=== PATIENT | male | born 1955 | race Caucasian/White ===

== ENCOUNTER 2017-11-10 19:10 | Emergency (ER) | payer OTHER, SELFPAY ==
[2017-11-10 19:11] VITALS: BP 153/67; PULSE 76; RESP 16; TEMP 36.6; O2SAT 100; BMI 34.5
--- NOTE | 2017-11-10 20:07 | EKG12_ITS ---
Test Reason : SOB Blood Pressure : / mmHG Vent. Rate : 070 BPM Atrial Rate : 070 BPM P-R Int : 240 ms QRS Dur : 110 ms QT Int : 398 ms P-R-T Axes : 042 -38 085 degrees QTc Int : 429 ms Sinus rhythm with 1st degree A-V block Left axis deviation Left ventricular hypertrophy Nonspecific ST and T wave abnormality Abnormal ECG Confirmed by GUILHERME ABERNATHY, MILLIE ([id number]), editor & co founder KIANNA CHRISTIAN ([id number]) on 11/15/2017 2:03:44 PM Referred By: LORI Confirmed By:MILLIE VANEGAS MD
--- NOTE | 2017-11-10 20:20 | RAD_ITS ---
STUDY: X-RAY CHEST REASON FOR EXAM: Male, 62 years old. Short of breath TECHNIQUE: PA and lateral COMPARISON: January 21, 2015 FINDINGS: There is mild bilateral perihilar interstitial thickening. There is no focal infiltrate or gross pulmonary edema.. There is no demonstrated pleural abnormality. Normal size heart. Normal mediastinum and zuleyma. Normal visualized pulmonary arteries. Normal visualized aortic arch and descending thoracic aorta. Postop change status post median sternotomy and CABG Dorsal spine demonstrates moderate spondylosis. Normal visualized ribs, clavicles, and shoulders. There is no demonstrated abnormality of the visualized soft tissue structures of the upper abdomen. RAD/Chest PA and Lateral IMPRESSION: Mild nonspecific bilateral perihilar interstitial thickening.. No focal infiltrate or gross pulmonary edema at this time Electronically Signed: Saeid Morales MD at 21:08 EDT , Service support ,
[2017-11-10 20:29] LABS: Absolute Lymphocyte Count 1.19 X10^3/ul (0.83-4.51); Absolute Neutrophil Count 3.5 X10^3/uL (2.0-7.7); Basophil# 0.02 X10^3/uL; Basophil% 0.4 % (0-1); Eosinophil# 0.15 X10^3/uL; Eosinophils% 2.8 % (0-5); Hematocrit 27.8 % (40-54); Hemoglobin 9.4 g/dl (13.0-16.5); Lymphocyte # 1.19 X10^3/ul (4.0); Mean Corp Hgb Conc 33.8 g/gl (32-36); Mean Corpuscular Hgb 30.6 pg (27.0-32.0); Mean Corpuscular Volume 90.6 fL (80-94); Monocyte# 0.53 X10^3/uL; Monocyte% 9.8 % (0-10); Neutrophil % 64.8 % (47-70); Platelet Count 160 K/mm3 (150-450); RBC Distribution Width CV 11.7 % (11.6-14.6); RBC Distribution Width SD 38.2 fl (35.1-43.9); Red Blood Count 3.07 M/mm3 (4.6-6.2); White Blood Count 5.4 K/mm3 (4.4-11.0)
[2017-11-10 20:32] LABS: POSITIVE COUNT NO; POSITIVE DIFFERENTIAL NO; POSITIVE MORPHOLOGY NO
[2017-11-10 20:37] LABS: Bacteria 0 SEEN /hpf (None Seen); Mucous, Urine 0 SEEN /hpf (<or=2+); Red Blood Cells-Urine 0 SEEN /hpf (0-5); Squamous Epithelial Cells - UA 0 SEEN /hpf (0-5); White Blood Cells 0 SEEN /hpf (0-5)
[2017-11-10 20:42] LABS: Color, Urine Yellow (Yellow); Glucose, Dipstick 100 mg/dl (Normal); Ketone-Dipstick Negative (Negative); Leukocyte Esterase-Dipstick Negative /ul (Negative); Nitrite-Dipstick Negative (Negative); Occult Blood-Urine Negative /ul (Negative); Protein-Dipstick 15 mg/dl (Negative); Specific Gravity, Urine 1.015 (1.002-1.030); Urine Bilirubin Dipstick Negative (Negative); Urine Clarity Clear (Clear); Urine Urobilinogen Normal (Normal)
[2017-11-10 20:43] VITALS: BP 146/57; PULSE 67; RESP 18; O2SAT 100
[2017-11-10] MEDS: 0.9% Normal Saline 1,000 ML 150 ML IV (20:43)
[2017-11-10 20:59] LABS: AST(SGOT) 12 U/L (15-37); Alanine Aminotransfer ALT/SGPT 16 U/L (16-61); Albumin, Serum 3.8 g/dL (3.2-5.0); Alkaline Phosphatase 142 U/L (45-117); Anion Gap 7 (5-15); BUN 47 mg/dL (7-18); BUN/Creat Ratio 21.9 RATIO (10-20); Bilirubin, Direct 0.07 mg/dL (0.00-0.30); Calcium,Total 8.5 mg/dL (8.5-10.1); Chloride 106 mmol/L (98-107); Creatinine, Serum 2.15 mg/dL (0.70-1.30); EST Glomerular Filtration Rate 33 mL/min (>60); Est Glom Filt Rate - Afr Amer 41 mL/min (>60); Estimated Creatinine Clearance 37.73 ml/min; Globulin 3.4 g/dL (2.2-4.2); Glucose 146 mg/dL (74-106); Potassium 5.3 mmol/L (3.5-5.1); Protein, Total 7.2 g/dL (6.4-8.2); Sodium Level 137 mmol/L (136-145)
[2017-11-10 21:09] LABS: Hyaline Cast 0-5 SEEN /lpf (0-5)
[2017-11-10 23:09] VITALS: BP 148/66; BP 157/63; BP 161/73; PULSE 71; PULSE 72; PULSE 74
[2017-11-10 23:13] VITALS: BP 148/66; PULSE 73; RESP 16; O2SAT 100
--- NOTE | 2017-11-10 23:19 | ED.VISSUMM ---
- ER Visit Summary Date of Service: 11/10/17 Chief Complaint: Weakness History of Present Illness: The patient is a 62 M reports generalized fatigue and lack of energy over the past 2 weeks. He does report having a diarrheal illness earlier this week. He states he was short of breath with exertion at work earlier. He has been having some pain to the right shoulder blade area for the past several weeks but does seem to be better today after some manipulation. Patient was seen by PCP in the office today and reportedly had orthostatic hypotension in the office. Patient was sent to the ER for further treatment. Physical Examination: Blood pressure is 153/67, temperature 97.9, heart rate 76, respiratory rate 16, pulse ox 100% on room air. Patient sitting upright in bed in no acute distress. He is nontoxic appearing. Head neck examination is unremarkable. Heart is regular rate and rhythm. Lung sounds are clear. Abdomen is soft nontender. Back examination is nontender. No rash or lesions are noted. Neuro exam reveals no focal deficits with normal strength and sensation. Test Results: EKG is sinus at 70 with a first-degree AV block. No acute ST changes noted. CBC reveals a hemoglobin of 9.4 and hematocrit 27.8. The most recent labs I have available to compare to reveal hemoglobin of 9.0 on September [id number]. Chemistry studies reveal potassium of 5.3 with a glucose of 146. His BUN is 47 his creatinine is 2.15. These are compared to prior creatinine values in our system of 1.2, 1.8, 2.3. Patient does not know what his baseline creatinine is. LFTs are normal. Urinalysis is unremarkable. Troponin is negative. Emergency Department Course and Treatment: Patient was given a liter of IV fluids. On repeat evaluation he reports feeling improved. He is able to get up and walk around without the funny feeling in my head. Patient had repeat orthostatic vital signs performed after IV fluids and they are normal at this time. He is encouraged to increase fluids over the weekend and follow with his primary care physician. Treatment Plan: [] Disposition: Discharge Impression: Dehydration This note was generated with [employer] software. It may contain incorrect words, spelling, and punctuation that were not noted in review of the chart prior to signing ED Disposition - Plan for ED Patient: Disposition: Home or Assisted Living Chief Complaint: Shortness of Breath Instructions: ED Dehydration Referrals: John Ramirez MD [Primary Care Provider] - 1 Week
[2017-11-10 23:30] VITALS: BP 143/78; PULSE 67; RESP 15; O2SAT 99
== END 2017-11-10 23:31 | disposition home or self-care (01) ==
PROVIDERS: Emergency Provider Emergency Medicine; Family Provider Family Medicine; PCP Family Medicine
DX: E86.0 Dehydration (principal); I25.10 Atherosclerotic heart disease of native coronary artery without angina pectoris; I25.2 Old myocardial infarction; I10 Essential (primary) hypertension; E78.00 Pure hypercholesterolemia, unspecified; E11.9 Type 2 diabetes mellitus without complications; G40.909 Epilepsy, unspecified, not intractable, without status epilepticus; Z87.891 Personal history of nicotine dependence; Z95.5 Presence of coronary angioplasty implant and graft; Z79.82 Long term (current) use of aspirin; Z79.4 Long term (current) use of insulin; Z79.899 Other long term (current) drug therapy
CPT/HCPCS: 71046; 80048; 80076; 81001; 84484; 85025; 93005; 96360; 96361; 99285; J7030; J7040; A4216

== ENCOUNTER 2019-01-26 01:00 | Emergency (ER) | payer OTHER, SELFPAY ==
[2019-01-26 01:01] VITALS: BP 168/76; PULSE 75; RESP 16; TEMP 36.8; O2SAT 100; BMI 37.0
--- NOTE | 2019-01-26 01:26 | EKG12_ITS ---
Test Reason : CP Blood Pressure : / mmHG Vent. Rate : 075 BPM Atrial Rate : 075 BPM P-R Int : 242 ms QRS Dur : 140 ms QT Int : 420 ms P-R-T Axes : 047 -48 111 degrees QTc Int : 469 ms Sinus rhythm with 1st degree A-V block Left axis deviation Left ventricular hypertrophy with QRS widening and repolarization abnormality Cannot rule out Septal infarct , age undetermined Abnormal ECG Confirmed by GUILHERME ABERNATHY, MILLIE ([id number]), video editor KIANNA CHRISTIAN ([id number]) on 01/28/2019 1:46:18 PM Referred By: SARTHAK Confirmed By:MILLIE VANEGAS MD
--- NOTE | 2019-01-26 01:28 | ED.VIS.CHEST ---
History of Present Illness Chief Complaint: Chest Pain Informant: Patient Onset: Hours - 1.5-2 Activity at onset: Rest Timing: Intermittent, Lasts - 1-1.5 Quality: Aching Location: Substernal - w/ radiation into axillae bilat Current Severity: Gone Maximum Severity: Moderate Worsened By: Nothing. Not Worsened By: Exertion, Movement of Arm, Movement of Torso, Palpation, Breathing, Coughing Relieved By: NTG - x3 Associated Symptoms: Negative for: Nausea, Vomiting, Diaphoresis, Dyspnea, Cough, Fever, Lightheadedness, Palpitations Narrative: Patient has been having this discomfort off and on for the past 2 or 3 weeks. Tonight it was more persistent, and more severe. Only tonight did he try nitroglycerin, it was improving the discomfort but then it would come back. After he took the third 1 just prior to arrival, the discomfort resolved and has not returned. He now does not have any discomfort or pain. He states that he ran out of his aspirin about a month ago and has not gotten any more so he has not been taking any. He is not supposed to be on any other antiplatelet or anticoagulant medications. He had his CABG about 4 or 5 years ago and has not had a stress test since. He was due to see his night assistant this year, however it was Dr. Broussard in the [facility] and he retired prior to the patient's appointment and he has not been reassigned to another night assistant yet, as there are no other [facility] cardiologists locally. Prior Similar Symptoms: No - felt different than when he had CABG - Past Medical History (1) Coronary artery disease Status: Chronic (2) Hypertension Status: Chronic (3) Type 2 diabetes mellitus Status: Chronic (4) Renal insufficiency Status: Chronic Past Medical History - Allergies and Home Meds Allergies/Adverse Reactions: Allergies codeine Allergy (Verified 01/26/19 01:01) Other Primary Care Physician: John Ramirez MD [Primary Care Provider] - Surgical History: coronary bypass surgery - 2014 Smoking Status: Former smoker Drugs: None Review of Systems General: Denies: Chills, Fever, Sweats Eyes: Denies: Visual changes - bilaterally, Diplopia ENT: Denies: Rhinorrhea, Sore throat Cardiovascular: Reports: Chest pain. Denies: Palpitations Respiratory: Denies: Dyspnea, Cough, Dyspnea on exertion Gastrointestinal: Denies: Abdominal pain, Nausea, Vomiting, Diarrhea, Melena, Hematochezia Genitourinary: Denies: Dysuria, Hematuria, Frequency Musculoskeletal: Reports: Swelling - Both legs times several weeks. Denies: Back pain, Extremity Pain Skin: Denies: Rash, Wounds Neurological: Denies: Headache, Weakness, Numbness Physical Exam Vital Signs/Narrative: Vital Signs Temp Pulse Resp BP Pulse Ox 01/26/19 01:01 98.3 F 75 16 168/76 H 100 Inital Vital Signs reviewed: Yes General: Well nourished, Well developed, No Acute Distress Head: Normocephalic, Atraumatic Eyes: Perrl, EOMI ENT: Moist mucous membranes, No rhinorrhea Neck: Supple, Nontender, No JVD Cardiovascular: Regular rate, Regular rhythm, No murmurs, Normal S1, Normal S2 Respiratory: No distress, CTA bilaterally, Chest nontender Abdomen: Soft, Nontender, Nondistended, Normal bowel sounds Back: Nontender, Normal Inspection Extremities: Nontender, Edema - 1+ bilateral lower extremity, symmetric, to mid shins. Negative for: Calf Tenderness Skin: Normal color, No rash, No Trauma Neurological: Alert, Oriented x3, Cranial nerves II-XII grossly intact, Normal Strength, Normal Sensation, Normal Gait Psychological: Normal affect, Normal Mood Diagnostic/Tx/Re-eval Impressions Chest X-Ray 01/26/19 01:45 IMPRESSION: Cardiomegaly, interstitial pulmonary edema, and tiny left pleural effusions suggest CHF.. at 0212 Reported and signed by: Pablito Romo MD Electronically Signed: Pablito Romo MD at 2:11 EDT Tel , Service support , 01/26/19 01:45 Chest 1 View (Portable) [RAD] Stat Laboratory Results 01/26/19 01/26/19 01:05 01:05 WBC 6.1 RBC 3.05 L Hgb 9.6 L Hct 28.7 L MCV 94.1 H MCH 31.5 MCHC 33.4 RDW Std Deviation 38.0 RDW Coeff of Melissa 11.4 L Plt Count 127 L MPV 10.3 Immature Gran % (Auto) 0.200 Neut % (Auto) 70.4 H Lymph % (Auto) 14.4 L [place] % (Auto) 11.3 H Eos % (Auto) 3.4 Baso % (Auto) 0.3 Absolute Neuts (auto) 4.3 Absolute Lymphs (auto) 0.88 Nucleated RBC % 0 Sodium 136 Potassium 4.2 Chloride 105 Carbon Dioxide 27.0 Anion Gap 4 L BUN 27 H Creatinine 1.30 Estim Creat Clear Calc 61.61 Est GFR (MDRD) Af Amer 72 Est GFR (MDRD) Non-Af 60 BUN/Creatinine Ratio 20.8 H Glucose 311 H Calcium 8.4 L Troponin I 0.019 - Rhythm Strip Rhythm Strip: Sinus Rhythm Rate: 75 Ectopy: None - EKG Initial EKG Interpretation: LBBB - suspected, AV Block - 1st deg, Inverted T-Waves - lateral limb leads w/ associated STD 1mm, S-T Elevation - J-pt elevation V1-2 1mm, - - LVH Prior: Changed - ant-sept abn are different compared w/ last EKG 2018 Repeat Eval: Pain Free - without additional treatment JONO Risk: >/= 3RF, H/O CAD Score: 2 - Medical Decision Making HEART score is /1/1/2/0 = 5. Work-up shows negative enzymes unremarkable x-ray, his EKG is different than the one that was performed a year or so ago, however his symptoms were resolved when the EKG was obtained. He prefers to try to go home, I discussed admission but he refuses. He has an appointment with his doctor on Monday. Given this, I would be okay with him going home since he has been pain-free for several hours if a delta troponin with a 3-hour repeat set of enzymes and repeat EKG were negative/unchanged. However, understanding that I am unable to make assumptions on his pain that he had earlier and its etiology, given his EKG changes and risk, he does not want to stay and wishes to leave now. Under the circumstances as I discussed with him, that will need to be AGAINST MEDICAL ADVICE. He understands that and also understands that he needs to take aspirin and is welcome to return if worse or if he changes his mind. ED Disposition - Plan for ED Patient: Disposition: Against Medical Advice Diagnosis: Chest pain, unspecified, Coronary artery disease Instructions: CHEST PAIN, Uncertain Cause Referrals: John Ramirez MD [Primary Care Provider] - Keep Huma appointment (Return to the ER for recurrent symptoms or if you change your mind about further evaluation/admission) Additional Instructions: Make sure you purchase some aspirin and take at least 81 mg once daily.
[2019-01-26 01:45] VITALS: BP 170/68; PULSE 63; RESP 16; O2SAT 100
--- NOTE | 2019-01-26 01:45 | RAD_ITS ---
HISTORY: CHEST PAIN STARTING TONIGHTHX OF TRIPLE BYPASS IN 2014 EXAM: XR Chest 1 View: COMPARISON: November 10, 2018 FINDINGS: # of images incl. paperwork: 1 Sternal wires persists Increased interstitial linear markings suggestive of minimal pulmonary edema is new Heart is borderline enlarged. Bones are normal. Pulmonary vascularity is distinct. Slight blunting to the left costophrenic sulcus could be due to a tiny left pleural effusion. RAD/Chest 1 View (Portable) IMPRESSION: Cardiomegaly, interstitial pulmonary edema, and tiny left pleural effusions suggest CHF.. at 0212 Reported and signed by: Pablito Romo MD Electronically Signed: Pablito Romo MD at 2:11 EDT Tel , Service support ,
[2019-01-26 01:46] LABS: Absolute Lymphocyte Count 0.88 X10^3/uL (0.83-4.51); Absolute Neutrophil Count 4.3 X10^3/uL (2.0-7.7); Basophil# 0.02 X10^3/uL; Basophil% 0.3 % (0-1); Eosinophil# 0.21 X10^3/uL; Eosinophils% 3.4 % (0-5); Hematocrit 28.7 % (40-54); Hemoglobin 9.6 g/dL (13.0-16.5); Lymphocyte # 0.88 X10^3/ul (4.0); Lymphocyte % 14.4 % (19-41); Mean Corp Hgb Conc 33.4 g/dL (32-36); Mean Corpuscular Hgb 31.5 pg (27.0-32.0); Mean Corpuscular Volume 94.1 fL (80-94); Mean Platelet Vol. 10.3 fl (6.2-12.0); Monocyte# 0.69 X10^3/uL; Monocyte% 11.3 % (0-10); NRBC Flagged by Analyzer 0 % (0-5); Neutrophil # 4.29 X10^3/uL (2.7-7.7); Neutrophil % 70.4 % (47-70); Platelet Count 127 K/mm3 (150-450); RBC Distribution Width CV 11.4 % (11.6-14.6); Red Blood Count 3.05 M/mm3 (4.6-6.2); White Blood Count 6.1 K/mm3 (4.4-11.0)
[2019-01-26 01:47] VITALS: BP 170/68; PULSE 63; RESP 17; O2SAT 100
[2019-01-26] MEDS: Aspirin 81 MG TAB.CHEW 324 MG PO (01:47)
[2019-01-26 01:50] LABS: Anion Gap 4 (5-15); BUN 27 mg/dL (7-18); BUN/Creat Ratio 20.8 RATIO (10-20); Calcium,Total 8.4 mg/dL (8.5-10.1); Chloride 105 mmol/L (98-107); EST Glomerular Filtration Rate 60 mL/min (>60); Est Glom Filt Rate - Afr Amer 72 mL/min (>60); Estimated Creatinine Clearance 61.61 ml/min; Glucose 311 mg/dL (74-106); Potassium 4.2 mmol/L (3.5-5.1); Sodium Level 136 mmol/L (136-145)
[2019-01-26 03:00] VITALS: BP 166/70; PULSE 90; RESP 16; O2SAT 100
== END 2019-01-26 03:02 | disposition left against medical advice (07) ==
PROVIDERS: Emergency Provider Emergency Medicine; Family Provider Family Medicine; PCP Family Medicine
DX: R07.9 Chest pain, unspecified (principal); I25.10 Atherosclerotic heart disease of native coronary artery without angina pectoris; Z53.21 Procedure and treatment not carried out due to patient leaving prior to being seen by health care provider; I12.9 Hypertensive chronic kidney disease with stage 1 through stage 4 chronic kidney disease, or unspecified chronic kidney disease; E11.22 Type 2 diabetes mellitus with diabetic chronic kidney disease; N18.9 Chronic kidney disease, unspecified; Z95.1 Presence of aortocoronary bypass graft; Z79.4 Long term (current) use of insulin; Z79.899 Other long term (current) drug therapy; Z87.891 Personal history of nicotine dependence
CPT/HCPCS: 71045; 80048; 84484; 85025; 93005; 99284; A4216

== ENCOUNTER 2019-03-06 09:24 | Inpatient (IN) | payer OTHER, SELFPAY ==
[2019-03-06] VITALS (35 sets, daily range): BP systolic 117–175; BP diastolic 51–79; PULSE 56–152; RESP 12–29; TEMP 35.6–37.4; O2SAT 79–100; BMI 46.5; BMI 36.4; BMI 36.5
--- NOTE | 2019-03-06 09:32 | NURSING ---
STEMI ALERT CALLED [phone]
--- NOTE | 2019-03-06 09:33 | CT_ITS ---
STUDY: CT BRAIN WITHOUT CONTRAST REASON FOR EXAM: Male, 63 years old. An injury due to a fall. RADIATION DOSAGE (If Supplied By Facility): CTDIvol = ( 44.99 ) mGy, DLP = ( 880.47 ) mGycm TECHNIQUE: Transaxial CT imaging of the brain was performed without administration of intravenous contrast material. Individualized dose optimization techniques were used for this CT. COMPARISON: No relevant priors. FINDINGS: Scalp hematoma overlying the posterior aspect of the right parietal occipital bone. Normal calvarium. Normal size ventricles and extra-axial spaces for the patient's age. Normal white matter tracts of the cerebral hemispheres. Normal basal ganglia and thalami. Normal brainstem. Normal cerebellum. There is no intracranial hemorrhage. There are no findings of an acute ischemic infarction. Atherosclerotic calcification of the vertebral arteries and cavernous portions of the internal carotid arteries bilaterally. Minimal nodular mucosal thickening along the lateral wall of the right and left maxillary sinuses. CT/Brain/Head without Contrast IMPRESSION: Scalp hematoma overlying the posterior aspect of the right parietal occipital bone. Electronically Signed: Chris Hare, at 9:51 EDT , Service support ,
--- NOTE | 2019-03-06 09:33 | EKG12_ITS ---
Test Reason : SYNCOPE Blood Pressure : / mmHG Vent. Rate : 152 BPM Atrial Rate : 152 BPM P-R Int : 000 ms QRS Dur : 196 ms QT Int : 348 ms P-R-T Axes : 000 -66 116 degrees QTc Int : 553 ms Appears to be Normal Sinus Rhythm, First Degree AV Block Left axis deviation Left bundle branch block Abnormal ECG Confirmed by BRIANA ABERNATHY, SHAVON ([id number]), order editor RAMYA MONTAGUE ([id number]) on 03/08/2019 1:46:45 PM Referred By: Suleman Gaines Confirmed By:MARIELENA WARREN MD
--- NOTE | 2019-03-06 09:41 | ED.RN ---
PT WITH EMESIS UPON CHECKING IN TO ROOM AND HR 152 ON MONITORY. 2ND LINE STARTED WITH BLOOD SENT. PT TO CT SCAN VIA CART WITH EMANI Cunningham RN. FAMILY IN AND UPDATED.
[2019-03-06 09:43] LABS: Absolute Lymphocyte Count 2.72 X10^3/uL (0.83-4.51); Absolute Neutrophil Count 6.4 X10^3/uL (2.0-7.7); Basophil# 0.03 X10^3/uL; Basophil% 0.3 % (0-1); Eosinophil# 0.21 X10^3/uL; Hematocrit 32.5 % (40-54); Hemoglobin 10.5 g/dL (13.0-16.5); Lymphocyte # 2.72 X10^3/ul (4.0); Lymphocyte % 26.1 % (19-41); Mean Corp Hgb Conc 32.3 g/dL (32-36); Mean Corpuscular Hgb 30.7 pg (27.0-32.0); Monocyte# 0.99 X10^3/uL; Monocyte% 9.5 % (0-10); NRBC Flagged by Analyzer 0 % (0-5); Neutrophil # 6.43 X10^3/uL (2.7-7.7); Neutrophil % 61.6 % (47-70); Platelet Count 185 K/mm3 (150-450); RBC Distribution Width SD 38.5 fl (35.1-43.9); Red Blood Count 3.42 M/mm3 (4.6-6.2); White Blood Count 10.4 K/mm3 (4.4-11.0)
--- NOTE | 2019-03-06 09:48 | NURSING ---
ICU 1 AFTER THROUGH OPERATOR PINTO STEMI
--- NOTE | 2019-03-06 09:51 | ED.RN ---
dr. bearden in to see pt and stemi called. pt alerrt and responsive. skin diaphoretic and pt sallow. c/o cp now though pt had cpr when went down. pt to ct scan
--- NOTE | 2019-03-06 09:53 | ED.DCSUM_ITS ---
- ER Visit Summary Date of Service: 03/06/19 Chief Complaint: [Syncope] History of Present Illness: The patient is a 63 M [presents the emergency department via EMS from work. Patient apparently had a syncopal episode while at work and hit his head on a concrete. There was some question of some seizure activity. Apparently bystanders did CPR for short time. On EMS arrival patient coherent but somewhat confused and disoriented. Patient had vomited. Patient on arrival to ER complains of retrosternal chest pressure and heaviness. Patient does have history of coronary artery disease with three-vessel CABG 4 years ago at [facility]. Patient does have a history of CHF and history of diabetes. Fingerstick blood sugar by EMS was 276. Patient denies any neck pain. Denies any abdominal pain.] Physical Examination: HEENT-PERRLA, EOMI. Cranial nerves II through XII grossly intact. TMs clear. Mucous membranes moist. No adenopathy. Patient has a hematoma to the right parietal scalp. She has no C-spine tenderness on palpation with normal active range of motion is painless. Cardiovascular-regular rate and rhythm without murmur or ectopy Lungs-good aeration bilaterally. Patient has rhonchi throughout. No accessory muscle use or retractions. Abdomen-normoactive bowel sounds, soft, nontender, no rebound or rigidity, no peritoneal signs. Extremities-intact ?4, normal range of motion, normal pulses, atraumatic] Test Results: [EKG obtained on arrival showed a sinus rhythm with a ventricular rate in the 70s with a left bundle branch block morphology which is new compared with prior EKG. Patient had a CBC with differential that showed a white count 10.4, hemoglobin 10.5, hematocrit 32, platelets 25. CT scan of the brain without contrast showed a scalp hematoma otherwise nothing acute.] Emergency Department Course and Treatment: [A STEMI alert was called and case was discussed with Dr. Gaines. No antiplatelet therapy was started in the emergency department due to the head injury and it was unclear at that time if patient had sustained an intracranial hemorrhage. Patient initially went to CT scan and then straight to the Printing Equipment Mechanic Apprentice from the CT scanner.] Treatment Plan: [Admit] Disposition: [Admit] Impression: [Syncope Acute ST elevation IA Closed head injury] This note was generated with [employer] software. It may contain incorrect words, spelling, and punctuation that were not noted in review of the chart prior to signing
--- NOTE | 2019-03-06 09:53 | ED.RN ---
0940-metallurgical lab technician ready and pt to metallurgical lab technician via cart straight from ct. updated family on condition adn sent to waiting room.
[2019-03-06 10:00] LABS: Anion Gap 7 (5-15); BUN 45 mg/dL (7-18); BUN/Creat Ratio 21.1 RATIO (10-20); Calcium,Total 8.6 mg/dL (8.5-10.1); Chloride 103 mmol/L (98-107); Creatinine, Serum 2.13 mg/dL (0.70-1.30); EST Glomerular Filtration Rate 34 mL/min (>60); Est Glom Filt Rate - Afr Amer 41 mL/min (>60); Estimated Creatinine Clearance 28.13 ml/min; Glucose 342 mg/dL (74-106); Sodium Level 134 mmol/L (136-145)
--- NOTE | 2019-03-06 10:28 | EKG12_ITS ---
Test Reason : POST CATH Blood Pressure : / mmHG Vent. Rate : 076 BPM Atrial Rate : 076 BPM P-R Int : 300 ms QRS Dur : 196 ms QT Int : 446 ms P-R-T Axes : 082 -59 106 degrees QTc Int : 501 ms Sinus rhythm with 1st degree A-V block Left axis deviation Left bundle branch block Abnormal ECG Confirmed by GUILHERME ABERNATHY, MILLIE ([id number]), content editor KIANNA CHRISTIAN ([id number]) on 03/13/2019 3:12:39 PM Referred By: Suleman Gaines Confirmed By:MILLIE VANEGAS MD
--- NOTE | 2019-03-06 10:29 | EKG12_ITS ---
Test Reason : POST CATH Blood Pressure : / mmHG Vent. Rate : 089 BPM Atrial Rate : 074 BPM P-R Int : 000 ms QRS Dur : 198 ms QT Int : 446 ms P-R-T Axes : 000 -59 105 degrees QTc Int : 542 ms Sinus Rhythm with Prolonged VT Interval Left axis deviation Left bundle branch block Abnormal ECG Confirmed by GUILHERME ABERNATHY, MILLIE ([id number]), development editor KIANNA CHRISTIAN ([id number]) on 03/13/2019 3:12:31 PM Referred By: Suleman Gaines Confirmed By:MILLIE VANEGAS MD
[2019-03-06] MEDS: Furosemide 100 MG/10 ML Vial 80 MG IV (10:50)
[2019-03-06 10:56] LABS: Bedside Glucose 403 mg/dL (70-110)
[2019-03-06 10:56] LABS: Base Excess -9 mmol/L (-2 to +2); Bicarbonate 17.4 mmol/L (22-26); Blood Gas Specimen Type ALINE; PO2 48 mmHG (75-100); SO2 81 % (95-99); Total Carbon Dioxide 18 mmol/L; pCO2 33.6 mmHg (35-45); pH 7.32 (7.35-7.45)
--- NOTE | 2019-03-06 11:00 | RAD_ITS ---
STUDY: X-RAY CHEST REASON FOR EXAM: Male, 63 years old. Chest pain. TECHNIQUE: Single AP portable view of the chest. COMPARISON: Comparison is made with prior study dated January 26, 2019. FINDINGS: EKG electrodes are seen. A defibrillator pad is seen overlying the right hemithorax. There is evidence of CHF with opacification of the right hemithorax. There is no demonstrated pleural abnormality. Sternal cerclage wires and vascular clips are present from a prior sternotomy and coronary artery bypass graft procedure (CABG). Moderate cardiomegaly. Normal mediastinum and zuleyma. Normal visualized pulmonary arteries. There is atherosclerotic calcification of the aortic arch with tortuosity. There are diffuse degenerative changes of the visualized thoracic spine. Normal visualized ribs, clavicles, and shoulders. There is no demonstrated abnormality of the visualized soft tissue structures of the upper abdomen. RAD/Chest 1 View (Portable) IMPRESSION: Atypical CHF more prominent in the right lung most likely positional in nature. Electronically Signed: Chris Hare, at 12:30 EDT , Service support ,
--- NOTE | 2019-03-06 11:02 | ECHOCS_ITS ---
Reason For Study: CAD, STEMI Procedure This was a 2D Doppler, Color Flow transthoracic echocardiogram. The study was technically difficult. Patient scanned supine due to recent sheath removal and post CPR. Exam performed portable in ICU/CCU. Left Ventricle Normal size and thickness. The estimated ejection fraction is 50-55 %. Stage 1 diastolic dysfunction. Septal motion consistent with IVCD. Posterior-Basal: Mildly hypokinetic. Right Ventricle Normal size and thickness. Normal systolic function. Atria Normal left atrium. Normal right atrium. Normal atrial septum. Mitral Valve The mitral valve is structurally normal. No prolapse or stenosis seen. Tricuspid Valve Normal tricuspid valve. Unable to estimate RV systolic pressure due to inadequate jet, pulmonary artery pressure probably normal. Aortic Valve Trisinus/trileaflet aortic valve. Normal aortic valve. Pulmonic Valve Normal pulmonic valve. Great Vessels Normal aortic root. Normal arch. Normal inferior vena cava. Inferior vena cava collapse with sniff. Pericardium/Pleural No pericardial effusion. Medication Diluted definity 2ml given slow IV push to enhance endocardial definition. MMode/2D Measurements & Calculations LVIDd: 5.4 cm IVSd: 0.92 cm Ao root diam: 3.2 cm LVIDs: 3.4 cm LVPWd: 1.1 cm FS: 37.8 % LAV(MOD-bp): 43.8 ml LA A4 area: 18.2 cm2 LA dimension(2D): 4.4 cm LAV(MOD-bp) Indexed: 20.7 ml/m2 LAV(MOD-sp2): 32.6 ml LAV(MOD-sp4): 46.9 ml RA A4 area: 14.1 cm2 Doppler Measurements & Calculations MV E max jose: 84.4 cm/sec Lat Peak E' Jose: 6.1 cm/sec Med Peak E' Jose: 3.2 cm/sec MV A max jose: 87.3 cm/sec E/E' lat: 13.7 E/E' med: 26.1 MV E/A: 0.97 Ao V2 max: 128.0 cm/sec LV V1 max: 110.5 cm/sec PA V2 max: 98.8 cm/sec Ao max P.6 mmHg LV V1 max P.9 mmHg Interpretation Summary The estimated ejection fraction is 50-55 %. Stage 1 diastolic dysfunction. Posterior-Basal: Mildly hypokinetic Unable to estimate RV systolic pressure due to inadequate jet, pulmonary artery pressure probably normal. There is no comparison study available. The study was technically difficult. Contrast injection was performed. Ordering Physician: Suleman Gaines Referring Physician: John Ramirez Performed By: Micaela Boyer RDCS
[2019-03-06] MEDS: Ipratropium/Albuterol Sulfate 3 ML AMPUL.NEB INHALATION ×3 (11:09→18:51)
--- NOTE | 2019-03-06 11:11 | CPS ---
Patient on 15L HFNC
--- NOTE | 2019-03-06 11:17 | CPS ---
STAT aerosol given.
[2019-03-06] MEDS: Insulin Lispro 100 UNIT/ML INSULN.PEN 10 UNIT SC (11:37)
[2019-03-06 12:18] LABS: Anion Gap 7 (5-15); BUN 47 mg/dL (7-18); BUN/Creat Ratio 23.5 RATIO (10-20); Calcium,Total 9.1 mg/dL (8.5-10.1); Chloride 103 mmol/L (98-107); EST Glomerular Filtration Rate 36 mL/min (>60); Est Glom Filt Rate - Afr Amer 44 mL/min (>60); Estimated Creatinine Clearance 40.05 ml/min; Glucose 368 mg/dL (74-106); Potassium 6.4 mmol/L (3.5-5.1); Sodium Level 135 mmol/L (136-145)
--- NOTE | 2019-03-06 12:27 | PCM.HP.STD ---
Problem List (1) Hyperkalemia Status: Acute (2) Acute kidney injury superimposed on chronic kidney disease Status: Acute (3) Coronary artery disease Status: Chronic Qualifiers: Coronary Disease-Associated Artery/Lesion type: [place] artery [place] vs. transplanted heart: [place] heart Associated angina: without angina Qualified Code(s): I25.10 - Atherosclerotic heart disease of [place] coronary artery without angina pectoris (4) Hypertension Status: Chronic (5) Type 2 diabetes mellitus Status: Chronic History of Present Illness Date of Admission: 03/06/19 Chief Complaint: Syncope, chest pain, left shoulder pain - 1 day The patient is a 63-year-old with past medical history of type II DM, insulin-dependent, CKD stage III, seizure disorder, on Tegretol, hypertension hyperlipidemia, CAD status post CABG who comes in with a syncopal episode. Patient has been complaining of left shoulder pain ongoing for 4 days. He went to work early this morning. He felt dizzy and there was a last thing he remembered. He was reportedly said to have had a syncopal episode without any observed seizure-like activity. He was said to be without a pulse and received CPR with chest compressions. Patient, on arrival by EMS, had a pulse and was alert and oriented x2. His vitals showed 90 temperature 96.1 F, heart rate 152, blood pressure 139/70, respiratory rate 18, SPO2 was 82% on room air and this improved to 90% on nonrebreather mask. He was observed to have begun to vomit. He had several episodes of vomiting in the emergency department. An EKG done showed wide-complex tachycardia. This was overhead paged as a STEMI alert. Patient was also noted to be hyperkalemic with potassium of 6.0. Sodium was 143, chloride 103, bicarbonate 25, anion gap of 7, BUN was 45, was 2.13; Creatinine is 1.30. WBC count was 10.4, hemoglobin 10.5, platelet count 185. He received calcium gluconate, IV insulin with dextrose. Patient underwent emergent cardiac catheterization which showed triple-vessel CAD of the LAD, left circumflex and RCA. Occluded saphenous graft to RCA. There was wide patency of the ORTIZ to LAD as well as SVG to OM. No interventions were performed. Chest X-ray done later in ICU was suggestive of acute CHF. Past Medical History Past Medical History (Chronic Problems): Chronic Problems Coronary artery disease (Chronic) Hypertension (Chronic) Type 2 diabetes mellitus (Chronic) Renal insufficiency (Chronic) Allergies codeine Allergy (Verified 01/26/19 01:01) Other lisinopril Allergy (Verified 03/06/19 12:24) Other Home Medications: Ambulatory Orders Medication Instructions Recorded Aspirin [Aspirin, Baby] 81 mg PO DAILY@0800 04/11/13 Carbamazepine [Tegretol] 200 mg PO TIDCM 04/11/13 Insulin Glargine [Lantus SoloStar 57 units SC QHS 04/11/13 Pen] Insulin Lispro [Humalog] 25 unit SQ TID 04/11/13 Atenolol [Tenormin (beta kelly)] 50 mg PO QHS 11/10/17 Furosemide [Lasix] 20 mg PO DAILY 03/06/19 Rosuvastatin Calcium [Crestor] 20 mg PO QHS 03/06/19 Surgical History: coronary bypass surgery - 2014 Psychiatric History: No pertinent psych hx Lives: With Family Smoking Status: Former smoker Tobacco Use: Non-smoker Alcohol: None Drugs: None - *Family History Maternal History Items: Heart Disease Paternal History Items: Hypertension - hx of quadruple bypass Review of Systems Constitutional: Denies: Anorexia, Chills, Fever, Malaise, Weakness, Weight Change, Fatigue Eyes: Denies: Blurred vision, Cataracts, Conjunctivae Inflammation, Pain, Redness, Vision Change HEENT: Denies: Difficulty Hearing, Difficulty Swallowing, Dysphasia, Head Aches, Hearing Changes, Nasal bleeding, Nasal Congestion, Post Nasal Drip, Sinus Congestion, Sinus Drainage Cardiovascular: Reports: Chest Tightness, Edema, Light Headedness, Orthopnea, Paroxysmal Noc. Dyspnea, Syncope. Denies: Chest Pain, Claudication, Chest Pressure, Heaviness, Palpitations Respiratory: Reports: Shortness of breath at rest, Shortness of breath upon exertion. Denies: Cough, Sputum production Gastrointestinal: Denies: Abdominal Pain, Constipation, Hematemesis, Hematochezia, Nausea, Vomiting Genitourinary: Denies: Dysuria, Incontinence, Nocturia Musculoskeletal: Denies: Joint Pain, Joint stiffness, Joint swelling, Joint Tenderness Skin: Denies: Rash, Wounds Neurological: Denies: Numbness, Tingling, Focal weakness Psychiatric: Denies: Anxiety, Depression, Homicidal Ideations, Suicidal Ideations Hematologic/ Lymphatic: Denies: Easy Bruising, Easy Bleeding VTE Information - Inpt Only VTE Present on Admission: No VTE Pharm Prophylaxis ordered?: Yes Patient Problems: Active and Suspected Problems Hyperkalemia (Acute) Acute kidney injury superimposed on chronic kidney disease (Acute) - Physical Exam General: Alert, Oriented x3, Cooperative, - - dyspneix on arrival to ICU HEENT: Atraumatic, PERRLA, EOMI, Normocephalic Oral: Moist Mucosa Neck: Supple Lungs: Clear to auscultation, Normal air movement Cardiovascular: Regular rate, Regular Rhythm, Normal S1, Normal S2, No murmurs Abdomen: Bowel Sounds Present, Soft, Non Tender, Passing Flatus, Hypoactive Bowel Sounds Extremities: No edema Skin: No rashes, No breakdown Musculoskeletal: No Tenderness to Palpation of Joints or Extremities Neurological: Cranial nerves II-XII grossly intact, Neuro grossly intact Psych/Mental Status: Normal Affect, Appropriate Vital Signs Temp Pulse Resp BP Pulse Ox 97.4 F L 70 20 H 166/77 H 90 03/06/19 10:30 03/06/19 11:09 03/06/19 11:09 03/06/19 10:30 03/06/19 11:09 Oxygen Flow Rate (L/min) 15 Oxygen Delivery Method Nasal Cannula Weight: 115.3 kg Body Mass Index (BMI) 36.4 Finger Stick Blood Glucose 476 Laboratory Tests Past 24 Hrs 03/06/19 03/06/19 03/06/19 09:30 09:30 09:54 WBC 10.4 RBC 3.42 L Hgb 10.5 L Hct 32.5 L MCV 95.0 H MCH 30.7 MCHC 32.3 RDW Std Deviation 38.5 RDW Coeff of Melissa 11.0 L Plt Count 185 MPV 10.0 Immature Gran % (Auto) 0.500 Neut % (Auto) 61.6 Lymph % (Auto) 26.1 [place] % (Auto) 9.5 Eos % (Auto) 2.0 Baso % (Auto) 0.3 Absolute Neuts (auto) 6.4 Absolute Lymphs (auto) 2.72 Nucleated RBC % 0 Specimen Type CHIVO pH 7.32 L Bicarbonate Actual 17.4 L POC Total CO2 18 Base Excess -9 L O2 Saturation 81 L ABG pCO2 33.6 L ABG pO2 48 L Sodium 134 L Potassium 6.0 H* Chloride 103 Carbon Dioxide 24.0 Anion Gap 7 BUN 45 H Creatinine 2.13 H Estim Creat Clear Calc 28.13 Est GFR (MDRD) Af Amer 41 L Est GFR (MDRD) Non-Af 34 L BUN/Creatinine Ratio 21.1 H Glucose 342 H Calcium 8.6 Troponin I < 0.015 03/06/19 11:30 WBC RBC Hgb Hct MCV MCH MCHC RDW Std Deviation RDW Coeff of Melissa Plt Count MPV Immature Gran % (Auto) Neut % (Auto) Lymph % (Auto) [place] % (Auto) Eos % (Auto) Baso % (Auto) Absolute Neuts (auto) Absolute Lymphs (auto) Nucleated RBC % Specimen Type pH Bicarbonate Actual POC Total CO2 Base Excess O2 Saturation ABG pCO2 ABG pO2 Sodium 135 L Potassium 6.4 H* Chloride 103 Carbon Dioxide 25.0 Anion Gap 7 BUN 47 H Creatinine 2.00 H Estim Creat Clear Calc 40.05 Est GFR (MDRD) Af Amer 44 L Est GFR (MDRD) Non-Af 36 L BUN/Creatinine Ratio 23.5 H Glucose 368 H Calcium 9.1 Troponin I POC Glucose 03/06/19 10:51 POC Glucose 403 H Assessment/Plan All Active Problems Hyperkalemia (Acute) Acute kidney injury superimposed on chronic kidney disease (Acute) Hyperglycemia (Acute) 63-year-old with past medical history of type II DM, insulin-dependent, CKD stage III, seizure disorder, on Tegretol, hypertension hyperlipidemia, CAD status post CABG who comes in with a syncopal episode and found to be hyperkalemic. 1. Syncope, likely secondary to hyperkalemia with EKG changes. Differentials include possible seizure as patient has history of seizure disorder Initially called out as acute STEMI, cardiac cath was unremarkable. Hyperkalemia management is ongoing Plan: Admit to ICU post cardiac cath, IV lispro 10 units x 1 with dextrose, albuterol breathing treatment, Kayexalate, repeat BMP in a couple of hours as well as in a.m. 2. Hyperkalemia likely secondary to TIFFANIE on CKD stage 3, repeat potassium is 6.4, patient had received insulin, breathing treatment, calcium gluconate in the cardiac cath Will continue with Kayexalate and repeat the above except for calcium gluconate plus Lasix 20mg IV x 1. 3. TIFFANIE on CKD stage III, likely multifactorial, in a known diabetic, with history of probable systolic CHF Most likely cardiorenal related, continue on Lasix, repeat BMP in a couple of hours as well as in a.m. Nephrology consulted 4. Acute on chronic systolic CHF, patient was given Lasix 80 mg IV x1 on arrival to the ICU Continue with Lasix 40 mg IV twice daily 5. Type II DM, blood sugars are uncontrolled, will continue on home insulin, blood glucose checks every 6h whilst kept n.p.o. Also insulin sliding scale, check HbA1c 6. Hypertension, uncontrolled, will continue on home atenolol as well as PRN Hydralazine 7. Anterior chest wall/right lower chest wall tenderness, likely secondary to recent CPR, Will order Dilaudid 0.5 mg IV x1, continue with Tylenol and Lidoderm patches 8. Seizure disorder, on Tegretol, EEG ordered 9. Left shoulder pain, ongoing 4 days prior to arrival, will get x-ray of the left shoulder, continue with scheduled Tylenol 10. DVT prophylaxis with heparin subcu 11. GI prophylaxis with famotidine Code Visit Inpatient E&M: 89935 Init Hosp L3
[2019-03-06 12:40] LABS: Bedside Glucose 356 mg/dL (70-110)
--- NOTE | 2019-03-06 12:43 | CON.PCM_ITS ---
Reason for Consult Date of Consultation: 03/06/19 Reason for Consultation: Acute Respiratory Failure History of Present Illness: The patient is a 63-year-old male, with a history as outlined below, who presented to the emergency department via EMS on March 06 after having a syncopal event while at work. The patient apparently went unresponsive and received bystander CPR. The patient does not recall the events leading up to or immediately after the syncopal episode. He does report a known history of seizures, for which he is on Tegretol. He states that his last seizure occurred 30+ years ago. He reports compliance with the use of Tegretol. The patient does have a known history of coronary artery disease having undergone a CABG previously and was recently diagnosed with congestive heart failure. He does not have a significant prior smoking history or any lung disease that he has been made aware of. He is currently employed working in a factory setting and denies having experienced any episodes similar to this previously. He denies a history of venous thromboembolic disease. On presentation to the emergency department, the patient was noted to be afebrile and hemodynamically stable. He was, nonetheless, tachycardic with a heart rate in the 150s and hypoxemic with an oxygen saturation of 82% on room air. On arrival to the ED, the patient was apparently confused and disoriented and was noted by the ED provider to have vomited during the episode noted above. Initial laboratory evaluation revealed evidence of normocytic anemia with a hemoglobin of 10.5. Chemistry profile was notable for an elevated potassium at 6.0. Creatinine was elevated to 2.13. Initial troponin was negative. CT head revealed evidence of a scalp hematoma but no evidence of intracranial hemorrhage. EKG obtained in the emergency department apparently demonstrated evidence of a new left bundle branch block, for which a STEMI alert was called. The patient was subsequently taken to the cardiac [facility] and underwent catheterization. That procedure demonstrated evidence of segmental LV systolic dysfunction along with patent vein grafts and an ejection fraction of 40 to 45%. The patient also had an elevated left ventricular end-diastolic pressure. Postprocedure, the patient was transferred to the medical intensive care unit. Plain film chest x-ray revealed findings concerning for congestive heart failure, although the edema appeared more asymmetric affecting the right lung preferentially. The patient received a large dose of IV Lasix with improvement in his respiratory status and oxygenation. Of note, the patient's girlfriend, who is present at the bedside, reports that he audibly snores when sleeping and frequently wakes up in the middle of the night gasping for air. The patient has never been formally evaluated with a polysomnogram. However, there is strong clinical suspicion for underlying sleep disordered breathing. Past Medical History Past Medical History (Chronic Problems): Chronic Problems Coronary artery disease (Chronic) Hypertension (Chronic) Type 2 diabetes mellitus (Chronic) Renal insufficiency (Chronic) Allergies codeine Allergy (Verified 01/26/19 01:01) Other lisinopril Allergy (Verified 03/06/19 12:24) Other Home Medications: Ambulatory Orders Medication Instructions Recorded Aspirin [Aspirin, Baby] 81 mg PO DAILY@0800 04/11/13 Carbamazepine [Tegretol] 200 mg PO TIDCM 04/11/13 Insulin Glargine [Lantus SoloStar 57 units SC QHS 04/11/13 Pen] Insulin Lispro [Humalog] 25 unit SQ TID 04/11/13 Atenolol [Tenormin (beta kelly)] 50 mg PO QHS 11/10/17 Furosemide [Lasix] 20 mg PO DAILY 03/06/19 Rosuvastatin Calcium [Crestor] 20 mg PO QHS 03/06/19 Surgical History: coronary bypass surgery - 2014 Smoking Status: Former smoker - *Family History Maternal History Items: Heart Disease Paternal History Items: Hypertension - hx of quadruple bypass Review of Systems Constitutional: Denies: Chills, Fever Eyes: Denies: Blurred vision, Double vision HEENT: Denies: Head Aches, Sinus Congestion, Sinus Drainage Cardiovascular: Reports: Chest Pain Respiratory: Denies: Cough, Shortness of Breath Gastrointestinal: Denies: Abdominal Pain, Nausea, Vomiting Genitourinary: Denies: Dysuria Musculoskeletal: Denies: Joint Tenderness, Leg Pain Skin: Denies: Rash, Wounds Neurological: Reports: Seizures Psychiatric: Denies: Anxiety, Depression, Homicidal Ideations, Suicidal Ideations Hematologic/ Lymphatic: Reports: Anemia. Denies: Hx of blood clot Patient Problems: Active and Suspected Problems Hyperkalemia (Acute) Acute kidney injury superimposed on chronic kidney disease (Acute) Objective: The patient's most recent lab work, culture data and imaging studies have all been personally reviewed. - Physical Exam General: Alert, Cooperative, No apparent distress HEENT: PERRLA Normocephalic Oral: No Gingival or Mucosal Lesions/ Ulcerations Neck: Supple, No Nodes, Trachea Midline Lungs: Diminished, - - Crackles present, right greater than left Cardiovascular: Regular rate, Regular Rhythm, Normal S1, Normal S2, No murmurs Abdomen: Bowel Sounds Present, Soft, Non Tender, Obese Extremities: No clubbing, No cyanosis, No edema Skin: No breakdown Musculoskeletal: - - Tenderness to palpation over anterior chest wall from CPR Lymphatic: No Cervical, Supraclavicular, or Inguinal Adenopathy Neurological: Cranial nerves II-XII grossly intact, Neuro grossly intact Psych/Mental Status: Normal Affect, Appropriate Vital Signs Temp Pulse Resp BP Pulse Ox 97.4 F L 70 20 H 166/77 H 90 03/06/19 10:30 03/06/19 11:09 03/06/19 11:09 03/06/19 10:30 03/06/19 11:09 Oxygen Flow Rate (L/min) 15 Oxygen Delivery Method Nasal Cannula Weight: 254 lb 3.088 oz Body Mass Index (BMI) 36.4 Finger Stick Blood Glucose 476 Laboratory Tests Past 24 Hrs 03/06/19 03/06/19 03/06/19 09:30 09:30 09:54 WBC 10.4 RBC 3.42 L Hgb 10.5 L Hct 32.5 L MCV 95.0 H MCH 30.7 MCHC 32.3 RDW Std Deviation 38.5 RDW Coeff of Melissa 11.0 L Plt Count 185 MPV 10.0 Immature Gran % (Auto) 0.500 Neut % (Auto) 61.6 Lymph % (Auto) 26.1 [place] % (Auto) 9.5 Eos % (Auto) 2.0 Baso % (Auto) 0.3 Absolute Neuts (auto) 6.4 Absolute Lymphs (auto) 2.72 Nucleated RBC % 0 Specimen Type CHIVO pH 7.32 L Bicarbonate Actual 17.4 L POC Total CO2 18 Base Excess -9 L O2 Saturation 81 L ABG pCO2 33.6 L ABG pO2 48 L Sodium 134 L Potassium 6.0 H* Chloride 103 Carbon Dioxide 24.0 Anion Gap 7 BUN 45 H Creatinine 2.13 H Estim Creat Clear Calc 28.13 Est GFR (MDRD) Af Amer 41 L Est GFR (MDRD) Non-Af 34 L BUN/Creatinine Ratio 21.1 H Glucose 342 H Calcium 8.6 Troponin I < 0.015 03/06/19 11:30 WBC RBC Hgb Hct MCV MCH MCHC RDW Std Deviation RDW Coeff of Melissa Plt Count MPV Immature Gran % (Auto) Neut % (Auto) Lymph % (Auto) [place] % (Auto) Eos % (Auto) Baso % (Auto) Absolute Neuts (auto) Absolute Lymphs (auto) Nucleated RBC % Specimen Type pH Bicarbonate Actual POC Total CO2 Base Excess O2 Saturation ABG pCO2 ABG pO2 Sodium 135 L Potassium 6.4 H* Chloride 103 Carbon Dioxide 25.0 Anion Gap 7 BUN 47 H Creatinine 2.00 H Estim Creat Clear Calc 40.05 Est GFR (MDRD) Af Amer 44 L Est GFR (MDRD) Non-Af 36 L BUN/Creatinine Ratio 23.5 H Glucose 368 H Calcium 9.1 Troponin I POC Glucose 03/06/19 03/06/19 12:30 10:51 POC Glucose 356 H 403 H Clinical Impression(s) from Imaging Studies Brain CT 03/06/19 09:33 IMPRESSION: Scalp hematoma overlying the posterior aspect of the right parietal occipital bone. Electronically Signed: Chris Hare, at 9:51 EDT , Service support , Chest X-Ray 03/06/19 11:00 IMPRESSION: Atypical CHF more prominent in the right lung most likely positional in nature. Electronically Signed: Chris Hare, at 12:30 EDT , Service support , Assessment/Plan Active and Suspected Problems Hyperkalemia (Acute) Acute kidney injury superimposed on chronic kidney disease (Acute) RECOMMENDATIONS: 1. Wean supplemental oxygen to maintain saturations at or above 90%. 2. Start BiPAP 12/6 centimeters of water and encourage use at the very minimum with naps and nightly. 3. Continue diuretic therapy as ordered. 4. Continue medical management of hyperkalemia. 5. Nephrology consultation is pending. IMPRESSIONS: 1. Acute hypoxemic respiratory failure The patient presented to the hospital with a new oxygen requirement and was at one point on a nonrebreather. Radiographically, there is evidence of asymmetric edema, with concern that these changes may have been precipitated by flash pulmonary edema, CPR administration or acute aspiration event. The patient has responded favorably to the use of IV diuretic therapy. His supplemental oxygen requirement has been weaned accordingly. Recommend continuing diuretics as ordered. At the current time, I have a low clinical index of suspicion for an underlying pulmonary infectious process. BiPAP can be utilized to assist with diuresis and help with alveolar recruitment. Encourage incentive spirometer use. Wean supplemental oxygen to maintain saturations at or above 90%. 2. Syncopal event Although the patient initially presented with a syncopal event which was felt to be secondary to a cardiac dysrhythmia in the setting of hyperkalemia, the patient does have a known history of seizures, for which she is prescribed Tegretol. While a cardiac etiology is a possibility, I cannot discount the possibility that the patient had a seizure or possible venous thromboembolism. 3. Acute on chronic kidney disease/hyperkalemia Although there was initial concern that the patient may have developed some form of cardiorenal syndrome, the patient appears to have an elevated creatinine dating back to 2012, raising the suspicion for underlying medical renal disease. Given his underlying renal insufficiency coupled with hyperkalemia, recommend consultation to nephrology. We will plan to continue medical management of the patient's hyperkalemia. 4. Known history of coronary artery disease status post CABG/acute decompensated systolic heart failure/cardiac dysrhythmia The patient was taken for cardiac catheterization on March 06 which did not reveal any culprit lesions requiring intervention. Cardiology is currently following. Echocardiogram is pending. Continue current medical management. 5. Concern for sleep disordered breathing The patient has symptoms concerning for underlying untreated sleep apnea, for which I would recommend that he follow-up as an outpatient to have a diagnostic polysomnogram completed. In the interim, orders will be placed for empiric BiPAP therapy with naps and nightly. 6. Unspecified seizure disorder/diabetes mellitus/hyperlipidemia/obesity Complicates care, management, recovery and prognosis. Continue basal insulin regimen. Start medium to high intensity sliding scale coverage. This note was generated with [employer] software. It may contain incorrect words, spelling, and punctuation that were not noted in checking the note before signing. Code Visit Inpatient E&M: 81741 Init Hosp L3
[2019-03-06] MEDS: Insulin Lispro 100 UNIT/ML INSULN.PEN SC ×3 (13:00→21:38)
--- NOTE | 2019-03-06 13:13 | CPS ---
Second STAT aerosol given.
[2019-03-06] MEDS: HYDROmorphone 0.5 MG/0.5 ML SYRINGE IV (13:47)
[2019-03-06] MEDS: Furosemide 20 MG/2 ML VIAL IV (14:21)
[2019-03-06] MEDS: carBAMazepine 200 MG Tablet PO ×2 (14:21→21:32)
[2019-03-06] MEDS: Sodium Polystyrene Sulfonate 15 GM/60 ML UDC 30 GM PO ×2 (14:21→23:17)
[2019-03-06 15:16] LABS: Bedside Glucose 247 mg/dL (70-110)
[2019-03-06 15:55] LABS: Hemoglobin A1c 9.4 % (4.2-6.3)
[2019-03-06] MEDS: 0.9% NaCl Peripheral Flush Adult/Peds IV ×4 (16:19→23:14)
[2019-03-06 17:15] LABS: Bedside Glucose 207 mg/dL (70-110)
[2019-03-06] MEDS: Furosemide 40 MG/4 ML Vial IV (17:53)
[2019-03-06] MEDS: Sodium Polystyrene Sulfonate 15 GM/60 ML UDC PO (17:53)
[2019-03-06 18:11] LABS: Anion Gap 4 (5-15); BUN 46 mg/dL (7-18); BUN/Creat Ratio 22.5 RATIO (10-20); Calcium,Total 8.8 mg/dL (8.5-10.1); Chloride 104 mmol/L (98-107); Creatinine, Serum 2.04 mg/dL (0.70-1.30); EST Glomerular Filtration Rate 35 mL/min (>60); Est Glom Filt Rate - Afr Amer 43 mL/min (>60); Estimated Creatinine Clearance 39.26 ml/min; Glucose 199 mg/dL (74-106); Potassium 6.1 mmol/L (3.5-5.1); Sodium Level 137 mmol/L (136-145)
[2019-03-06] MEDS: Magnesium Hydroxide 30 ML UDC PO (19:19)
[2019-03-06] MEDS: Polyethylene Glycol 3350 17 GM PACKET PO (19:36)
[2019-03-06] MEDS: Atorvastatin Calcium 40 MG Tablet PO (21:32)
[2019-03-06] MEDS: Atenolol 50 MG Tablet PO (21:32)
[2019-03-06] MEDS: Heparin Injection (Vial) 5,000 UNIT/ML VIAL 5000 UNIT SC (21:33)
[2019-03-06] MEDS: 0.9% NaCl IVPB Med Flush (250 mL) 15 ML IV (22:02)
[2019-03-06 22:06] LABS: Bedside Glucose 281 mg/dL (70-110)
[2019-03-06] MEDS: Dextrose 50%-Water 25 GM/50 ML DISP.SYRIN IV (23:14)
[2019-03-07] VITALS (19 sets, daily range): BP systolic 111–161; BP diastolic 51–74; PULSE 67–93; RESP 11–98; TEMP 36.4–38.2; O2SAT 10–100
[2019-03-07] MEDS: Polyethylene Glycol 3350 17 GM PACKET 34 GM PO (00:56)
[2019-03-07] MEDS: Ondansetron 4 MG/2 ML Vial IV ×2 (03:50→12:02)
[2019-03-07] MEDS: 0.9% NaCl Peripheral Flush Adult/Peds IV ×2 (03:50→12:04)
[2019-03-07 04:24] LABS: Basophil# 0.01 X10^3/uL; Basophil% 0.1 % (0-1); Hematocrit 31.9 % (40-54); Hemoglobin 10.5 g/dL (13.0-16.5); Lymphocyte % 6.5 % (19-41); Mean Corp Hgb Conc 32.9 g/dL (32-36); Mean Corpuscular Hgb 31.2 pg (27.0-32.0); Mean Corpuscular Volume 94.7 fL (80-94); Mean Platelet Vol. 9.8 fl (6.2-12.0); Monocyte# 1.08 X10^3/uL; NRBC Flagged by Analyzer 0 % (0-5); Neutrophil # 8.98 X10^3/uL (2.7-7.7); Neutrophil % 82.9 % (47-70); Platelet Count 162 K/mm3 (150-450); RBC Distribution Width CV 11.1 % (11.6-14.6); RBC Distribution Width SD 38.5 fl (35.1-43.9); Red Blood Count 3.37 M/mm3 (4.6-6.2); White Blood Count 10.8 K/mm3 (4.4-11.0)
[2019-03-07 04:40] LABS: AST(SGOT) 51 U/L (15-37); Alanine Aminotransfer ALT/SGPT 35 U/L (16-61); Albumin, Serum 3.5 g/dL (3.2-5.0); Alkaline Phosphatase 141 U/L (45-117); Anion Gap 12 (5-15); BUN 48 mg/dL (7-18); BUN/Creat Ratio 21.9 RATIO (10-20); Calcium,Total 8.8 mg/dL (8.5-10.1); Chloride 104 mmol/L (98-107); Cholesterol 198 mg/dL (200); Creatinine, Serum 2.19 mg/dL (0.70-1.30); EST Glomerular Filtration Rate 33 mL/min (>60); Est Glom Filt Rate - Afr Amer 39 mL/min (>60); Estimated Creatinine Clearance 36.57 ml/min; Globulin 3.6 g/dL (2.2-4.2); Glucose 343 mg/dL (74-106); High Density Lipoprotein 50 mg/dL; Phosphorus 4.7 mg/dL (2.5-4.9); Potassium 4.5 mmol/L (3.5-5.1); Protein, Total 7.1 g/dL (6.4-8.2); Sodium Level 140 mmol/L (136-145); Triglycerides 157 mg/dL; Very Low Density Lipoprotein 31 mg/dL (5-40)
--- NOTE | 2019-03-07 05:55 | RAD_ITS ---
STUDY: X-RAY - LEFT SHOULDER REASON FOR EXAM: Male, 63 years old. Shoulder pain. TECHNIQUE: 4 view(s) of the shoulder. COMPARISON: None. FINDINGS: Normal glenohumeral articulation. Normal acromioclavicular joint. Normal acromion. Normal humeral head and visualized proximal humerus. The soft tissue structures are unremarkable. Normal visualized pulmonary apex. RAD/Shoulder min 2 Views IMPRESSION: Normal x-ray examination of the shoulder. Electronically Signed: Chris Hare, at 9:31 EDT , Service support ,
[2019-03-07] MEDS: carBAMazepine 200 MG Tablet PO ×2 (06:14→14:36)
[2019-03-07 06:21] LABS: Bedside Glucose 366 mg/dL (70-110)
--- NOTE | 2019-03-07 06:58 | PN_ITS ---
Subjective: The patient was seen and examined at the bedside this morning. Events from the last 24 hours have been reviewed. The patient is currently afebrile, hemodynamically stable and maintaining appropriate oxygen saturations on room air. Overnight, the patient experienced episodes with nausea and did have several episodes of emesis. He was given multiple cathartics along with Kayexalate to assist in decreasing his serum potassium level. The patient's blood counts are stable this morning. Potassium level has improved to 4.5. Creatinine is relatively stable at 2.19. The patient denies any resting shortness of breath or chest pain. The patient does continue to report right shoulder pain along with abdominal pain. Objective: The patient's most recent lab work, culture data and imaging studies have all been personally reviewed. Surface echocardiogram revealed normal LV size and thickness of the LV with an ejection fraction of 50% and stage I diastolic dysfunction. General: Alert, Cooperative, No apparent distress HEENT: Atraumatic, PERRLA, Normocephalic Oral: No Gingival or Mucosal Lesions/ Ulcerations Neck: Supple, No Nodes, Trachea Midline Lungs: No rhonchi, No wheeze, No rales, Diminished Cardiovascular: Regular rate, Regular Rhythm, Normal S1, Normal S2, No murmurs Abdomen: Soft, Hyperactive Bowel Sounds, Obese, Tender Extremities: No clubbing, No cyanosis, No edema Skin: No breakdown Musculoskeletal: - - Anterior chest wall tenderness Lymphatic: No Cervical, Supraclavicular, or Inguinal Adenopathy Neurological: Cranial nerves II-XII grossly intact, Neuro grossly intact Psych/Mental Status: Normal Affect, Appropriate Vital Signs Temp Pulse Resp BP Pulse Ox 97.5 F L 70 98 H 117/63 10 03/07/19 06:00 03/07/19 06:00 03/07/19 06:00 03/07/19 06:00 03/07/19 06:00 Oxygen Flow Rate (L/min) 2 Oxygen Delivery Method Room Air Weight: 241 lb 2.971 oz Body Mass Index (BMI) 36.4 Finger Stick Blood Glucose 476 Intake and Output for Last 24 Hours 03/05/19 03/06/19 03/07/19 23:59 23:59 23:59 Intake Total 843.35 / 843.35 280 / 280 Output Total 3750 / 3750 350 / 350 Balance -2906.65 / -2906.65 -70 / -70 Labs (Last 48 Hours) 03/06/19 03/06/19 03/06/19 09:30 09:30 09:30 WBC 10.4 RBC 3.42 L Hgb 10.5 L Hct 32.5 L MCV 95.0 H MCH 30.7 MCHC 32.3 RDW Std Deviation 38.5 RDW Coeff of Melissa 11.0 L Plt Count 185 MPV 10.0 Immature Gran % (Auto) 0.500 Neut % (Auto) 61.6 Lymph % (Auto) 26.1 Richardson % (Auto) 9.5 Eos % (Auto) 2.0 Baso % (Auto) 0.3 Absolute Neuts (auto) 6.4 Absolute Lymphs (auto) 2.72 Nucleated RBC % 0 Specimen Type pH Bicarbonate Actual POC Total CO2 Base Excess O2 Saturation ABG pCO2 ABG pO2 Sodium 134 L Potassium 6.0 H* Chloride 103 Carbon Dioxide 24.0 Anion Gap 7 BUN 45 H Creatinine 2.13 H Estim Creat Clear Calc 28.13 Est GFR (MDRD) Af Amer 41 L Est GFR (MDRD) Non-Af 34 L BUN/Creatinine Ratio 21.1 H Glucose 342 H Hemoglobin A1c 9.4 H Calcium 8.6 Phosphorus Total Bilirubin AST ALT Alkaline Phosphatase Troponin I < 0.015 Total Protein Albumin Globulin Albumin/Globulin Ratio Triglycerides Cholesterol LDL Cholesterol VLDL Cholesterol HDL Cholesterol POC Glucose 03/06/19 03/06/19 03/06/19 09:54 10:51 11:30 WBC RBC Hgb Hct MCV MCH MCHC RDW Std Deviation RDW Coeff of Melissa Plt Count MPV Immature Gran % (Auto) Neut % (Auto) Lymph % (Auto) Richardson % (Auto) Eos % (Auto) Baso % (Auto) Absolute Neuts (auto) Absolute Lymphs (auto) Nucleated RBC % Specimen Type CHIVO pH 7.32 L Bicarbonate Actual 17.4 L POC Total CO2 18 Base Excess -9 L O2 Saturation 81 L ABG pCO2 33.6 L ABG pO2 48 L Sodium 135 L Potassium 6.4 H* Chloride 103 Carbon Dioxide 25.0 Anion Gap 7 BUN 47 H Creatinine 2.00 H Estim Creat Clear Calc 40.05 Est GFR (MDRD) Af Amer 44 L Est GFR (MDRD) Non-Af 36 L BUN/Creatinine Ratio 23.5 H Glucose 368 H Hemoglobin A1c Calcium 9.1 Phosphorus Total Bilirubin AST ALT Alkaline Phosphatase Troponin I Total Protein Albumin Globulin Albumin/Globulin Ratio Triglycerides Cholesterol LDL Cholesterol VLDL Cholesterol HDL Cholesterol POC Glucose 403 H 03/06/19 03/06/19 03/06/19 12:30 15:12 17:13 WBC RBC Hgb Hct MCV MCH MCHC RDW Std Deviation RDW Coeff of Melissa Plt Count MPV Immature Gran % (Auto) Neut % (Auto) Lymph % (Auto) Richardson % (Auto) Eos % (Auto) Baso % (Auto) Absolute Neuts (auto) Absolute Lymphs (auto) Nucleated RBC % Specimen Type pH Bicarbonate Actual POC Total CO2 Base Excess O2 Saturation ABG pCO2 ABG pO2 Sodium Potassium Chloride Carbon Dioxide Anion Gap BUN Creatinine Estim Creat Clear Calc Est GFR (MDRD) Af Amer Est GFR (MDRD) Non-Af BUN/Creatinine Ratio Glucose Hemoglobin A1c Calcium Phosphorus Total Bilirubin AST ALT Alkaline Phosphatase Troponin I Total Protein Albumin Globulin Albumin/Globulin Ratio Triglycerides Cholesterol LDL Cholesterol VLDL Cholesterol HDL Cholesterol POC Glucose 356 H 247 H 207 H 03/06/19 03/06/19 03/06/19 17:50 21:36 22:00 WBC RBC Hgb Hct MCV MCH MCHC RDW Std Deviation RDW Coeff of Melissa Plt Count MPV Immature Gran % (Auto) Neut % (Auto) Lymph % (Auto) Richardson % (Auto) Eos % (Auto) Baso % (Auto) Absolute Neuts (auto) Absolute Lymphs (auto) Nucleated RBC % Specimen Type pH Bicarbonate Actual POC Total CO2 Base Excess O2 Saturation ABG pCO2 ABG pO2 Sodium 137 Potassium 6.1 H* 6.0 H* Chloride 104 Carbon Dioxide 29.0 Anion Gap 4 L BUN 46 H Creatinine 2.04 H Estim Creat Clear Calc 39.26 Est GFR (MDRD) Af Amer 43 L Est GFR (MDRD) Non-Af 35 L BUN/Creatinine Ratio 22.5 H Glucose 199 H Hemoglobin A1c Calcium 8.8 Phosphorus Total Bilirubin AST ALT Alkaline Phosphatase Troponin I Total Protein Albumin Globulin Albumin/Globulin Ratio Triglycerides Cholesterol LDL Cholesterol VLDL Cholesterol HDL Cholesterol POC Glucose 281 H 03/07/19 03/07/19 03/07/19 04:15 04:15 06:13 WBC 10.8 RBC 3.37 L Hgb 10.5 L Hct 31.9 L MCV 94.7 H MCH 31.2 MCHC 32.9 RDW Std Deviation 38.5 RDW Coeff of Melissa 11.1 L Plt Count 162 MPV 9.8 Immature Gran % (Auto) 0.500 Neut % (Auto) 82.9 H Lymph % (Auto) 6.5 L Richardson % (Auto) 10.0 Eos % (Auto) 0.0 Baso % (Auto) 0.1 Absolute Neuts (auto) 9.0 H Absolute Lymphs (auto) 0.70 L Nucleated RBC % 0 Specimen Type pH Bicarbonate Actual POC Total CO2 Base Excess O2 Saturation ABG pCO2 ABG pO2 Sodium 140 Potassium 4.5 Chloride 104 Carbon Dioxide 24.0 Anion Gap 12 BUN 48 H Creatinine 2.19 H Estim Creat Clear Calc 36.57 Est GFR (MDRD) Af Amer 39 L Est GFR (MDRD) Non-Af 33 L BUN/Creatinine Ratio 21.9 H Glucose 343 H Hemoglobin A1c Calcium 8.8 Phosphorus 4.7 Total Bilirubin 0.50 AST 51 H ALT 35 Alkaline Phosphatase 141 H Troponin I Total Protein 7.1 Albumin 3.5 Globulin 3.6 Albumin/Globulin Ratio 1.0 Triglycerides 157 Cholesterol 198 LDL Cholesterol 117 VLDL Cholesterol 31 HDL Cholesterol 50 POC Glucose 366 H Clinical Impression(s) from Imaging Studies Brain CT 03/06/19 09:33 IMPRESSION: Scalp hematoma overlying the posterior aspect of the right parietal occipital bone. Electronically Signed: Chris Hare, at 9:51 EDT , Service support , Chest X-Ray 03/06/19 11:00 IMPRESSION: Atypical CHF more prominent in the right lung most likely positional in nature. Electronically Signed: Chris Hare, at 12:30 EDT , Service support , Medical Necessity - Tobacco Use Smoking Status: Former smoker Tobacco Use: Non-smoker Assessment/Plan All Active Problems Hyperkalemia (Acute) Acute kidney injury superimposed on chronic kidney disease (Acute) Hyperglycemia (Acute) RECOMMENDATIONS: 1. Encourage incentive spirometer use and mobilize patient as tolerated. 2. Continue empiric BiPAP therapy with naps and nightly. 3. Recommend outpatient pulmonary follow-up and diagnostic polysomnogram. 4. Await EEG results IMPRESSIONS: 1. Acute hypoxemic respiratory failure The patient presented to the hospital with a new oxygen requirement and was at one point on a nonrebreather. Radiographically, there is evidence of asymmetric edema, with concern that these changes may have been precipitated by flash pulmonary edema, CPR administration or acute aspiration event. The patient has responded favorably to the use of IV diuretic therapy. His supplemental oxygen requirement has been weaned accordingly. At the current time, I have a low clinical index of suspicion for an underlying pulmonary infectious process. BiPAP can be utilized to assist with diuresis and help with alveolar recruitment. Encourage incentive spirometer use. 2. Syncopal event Likely precipitated by cardiac dysrhythmia in the setting of hyperkalemia. 3. Acute on chronic kidney disease/hyperkalemia Although there was initial concern that the patient may have developed some form of cardiorenal syndrome, the patient appears to have an elevated creatinine dating back to 2012, raising the suspicion for underlying medical renal disease. Hyperkalemia resolved with medical management. Nephrology is currently following. 4. Known history of coronary artery disease status post CABG/acute decompensated systolic heart failure/cardiac dysrhythmia The patient was taken for cardiac catheterization on March 06 which did not reveal any culprit lesions requiring intervention. Cardiology is currently following. Continue current medical management. 5. Concern for sleep disordered breathing The patient has symptoms concerning for underlying untreated sleep apnea, for which I would recommend that he follow-up as an outpatient to have a diagnostic polysomnogram completed. In the interim, orders will be placed for empiric BiPAP therapy with naps and nightly. 6. Unspecified seizure disorder/diabetes mellitus/hyperlipidemia/obesity Complicates care, management, recovery and prognosis. Continue basal insulin regimen. Continue sliding scale coverage. This note was generated with [employer] dictation software. It may contain incorrect words, spelling, and punctuation that were not noted in checking the note before signing. UPDATE: Upon reevaluation of the patient this afternoon, he was noted to be complaining of a great deal of abdominal pain and had persistent nausea and vomiting. The patient was also noted to have spiked a fever. On examination, the patient has abdominal pain which is most pronounced in the right upper quadrant. He is having difficulty maintaining a comfortable position in bed. He also continues to report the presence of right shoulder pain. Given that the patient has already undergone a plain film x-ray of his right shoulder which showed no acute process, and in light of his abdominal pain, I would recommend that we obtain imaging to rule out potential gallbladder etiology. Code Visit Inpatient E&M: 13516 Subs Hosp L3
--- NOTE | 2019-03-07 08:19 | RAD_ITS ---
STUDY: X-RAY CHEST REASON FOR EXAM: Male, 63 years old. Shortness of breath with dyspnea TECHNIQUE: PA and lateral views of the chest. COMPARISON: Chest x-ray yesterday FINDINGS: The lungs are clear and expanded. There is no demonstrated pleural abnormality. There is borderline cardiomegaly. Mediastinotomy wires are noted. Normal mediastinum and zuleyma. Normal visualized pulmonary arteries. Normal visualized aortic arch and descending thoracic aorta. Normal visualized thoracic spine. Normal visualized ribs, clavicles, and shoulders. There is no demonstrated abnormality of the visualized soft tissue structures of the upper abdomen. RAD/Chest PA and Lateral IMPRESSION: No acute cardiopulmonary disease. Electronically Signed: Mike Vega DO at 12:29 EDT Tel , Service support ,
--- NOTE | 2019-03-07 09:16 | PCM.PN.HOSP ---
Patient Problems: Active and Suspected Problems Hyperkalemia (Acute) Acute kidney injury superimposed on chronic kidney disease (Acute) Subjective: Patient was seen and examined. He is off oxygen. He feels much improved. Still has some right sided anterior chest wall and upper abdominal wall pain. Denies any dizziness or palpitation or left-sided chest pain. Objective: Physical Exam General: Alert, Oriented x3, Cooperative, off oxygen HEENT: Atraumatic, PERRLA, EOMI, Normocephalic Oral: Moist Mucosa Neck: Supple Lungs: Clear to auscultation, Normal air movement, tenderness over anterior right sided chest Cardiovascular: Regular rate, Regular Rhythm, Normal S1, Normal S2, No murmurs Abdomen: Bowel Sounds Present, Soft, Non Tender, Passing Flatus, Hypoactive Bowel Sounds Extremities: No edema Skin: No rashes, No breakdown Musculoskeletal: No Tenderness to Palpation of Joints or Extremities Neurological: Cranial nerves II-XII grossly intact, Neuro grossly intact Psych/Mental Status: Normal Affect, Appropriate Vitals/I&O's: Vital Signs Temp Pulse Resp BP Pulse Ox 98.8 F 75 16 161/61 H 96 03/07/19 09:00 03/07/19 09:00 03/07/19 09:00 03/07/19 09:00 03/07/19 09:00 Oxygen Flow Rate (L/min) 2 Oxygen Delivery Method Room Air Weight: 109.4 kg Body Mass Index (BMI) 36.4 Finger Stick Blood Glucose 476 Intake and Output for Last 24 Hours 03/05/19 03/06/19 03/07/19 23:59 23:59 23:59 Intake Total 843.35 / 843.35 280 / 280 Output Total 3750 / 3750 350 / 350 Balance -2906.65 / -2906.65 -70 / -70 Laboratory Results 03/06/19 09:30: WBC 10.4, RBC 3.42 L, Hgb 10.5 L, Hct 32.5 L, MCV 95.0 H, MCH 30.7, MCHC 32.3, RDW Std Deviation 38.5, RDW Coeff of Melissa 11.0 L, Plt Count 185, MPV 10.0, Immature Gran % (Auto) 0.500, Neut % (Auto) 61.6, Lymph % (Auto) 26.1, [place] % (Auto) 9.5, Eos % (Auto) 2.0, Baso % (Auto) 0.3, Absolute Neuts (auto) 6.4, Absolute Lymphs (auto) 2.72, Nucleated RBC % 0 03/06/19 09:30: Sodium 134 L, Potassium 6.0 H*, Chloride 103, Carbon Dioxide 24.0, Anion Gap 7, BUN 45 H, Creatinine 2.13 H, Estim Creat Clear Calc 28.13, Est GFR (MDRD) Af Amer 41 L, Est GFR (MDRD) Non-Af 34 L, BUN/Creatinine Ratio 21.1 H, Glucose 342 H, Calcium 8.6, Troponin I < 0.015 03/06/19 09:30: Hemoglobin A1c 9.4 H 03/06/19 09:54: Specimen Type CHIVO, pH 7.32 L, Bicarbonate Actual 17.4 L, POC Total CO2 18, Base Excess -9 L, O2 Saturation 81 L, ABG pCO2 33.6 L, ABG pO2 48 L 03/06/19 10:51: POC Glucose 403 H 03/06/19 11:30: Sodium 135 L, Potassium 6.4 H*, Chloride 103, Carbon Dioxide 25.0, Anion Gap 7, BUN 47 H, Creatinine 2.00 H, Estim Creat Clear Calc 40.05, Est GFR (MDRD) Af Amer 44 L, Est GFR (MDRD) Non-Af 36 L, BUN/Creatinine Ratio 23.5 H, Glucose 368 H, Calcium 9.1 03/06/19 12:30: POC Glucose 356 H 03/06/19 15:12: POC Glucose 247 H 03/06/19 17:13: POC Glucose 207 H 03/06/19 17:50: Sodium 137, Potassium 6.1 H*, Chloride 104, Carbon Dioxide 29.0, Anion Gap 4 L, BUN 46 H, Creatinine 2.04 H, Estim Creat Clear Calc 39.26, Est GFR (MDRD) Af Amer 43 L, Est GFR (MDRD) Non-Af 35 L, BUN/Creatinine Ratio 22.5 H, Glucose 199 H, Calcium 8.8 03/06/19 21:36: POC Glucose 281 H 03/06/19 22:00: Potassium 6.0 H* 03/07/19 04:15: WBC 10.8, RBC 3.37 L, Hgb 10.5 L, Hct 31.9 L, MCV 94.7 H, MCH 31.2, MCHC 32.9, RDW Std Deviation 38.5, RDW Coeff of Melissa 11.1 L, Plt Count 162, MPV 9.8, Immature Gran % (Auto) 0.500, Neut % (Auto) 82.9 H, Lymph % (Auto) 6.5 L, [place] % (Auto) 10.0, Eos % (Auto) 0.0, Baso % (Auto) 0.1, Absolute Neuts (auto) 9.0 H, Absolute Lymphs (auto) 0.70 L, Nucleated RBC % 0 03/07/19 04:15: Sodium 140, Potassium 4.5, Chloride 104, Carbon Dioxide 24.0, Anion Gap 12, BUN 48 H, Creatinine 2.19 H, Estim Creat Clear Calc 36.57, Est GFR (MDRD) Af Amer 39 L, Est GFR (MDRD) Non-Af 33 L, BUN/Creatinine Ratio 21.9 H, Glucose 343 H, Calcium 8.8, Phosphorus 4.7, Total Bilirubin 0.50, AST 51 H, ALT 35, Alkaline Phosphatase 141 H, Total Protein 7.1, Albumin 3.5, Globulin 3.6, Albumin/Globulin Ratio 1.0, Triglycerides 157, Cholesterol 198, LDL Cholesterol 117, VLDL Cholesterol 31, HDL Cholesterol 50 03/07/19 06:13: POC Glucose 366 H Current Medications Acetaminophen (Tylenol) 1,000 mg PO TID [facility] Al Hydroxide/Mg Hydroxide (Mylanta Ii) 30 ml PO Q6H PRN PRN PRN Reason: Gastric Burning Albuterol Sulfate (Ventolin Aerosols) 2.5 mg INHALATION Q2H PRN PRN PRN Reason: SOB/Wheezing Albuterol/Ipratropium (Duoneb) 3 ml INHALATION Q4HWA.RT [facility] Last Admin: 03/07/19 07:23 Dose: Not Given Documented by: Aspirin (Aspirin, Baby) 81 mg PO DAILY@0800 [facility] Atenolol (Tenormin (Beta Sharon)) 50 mg PO QHS [facility] Last Admin: 03/06/19 21:32 Dose: 50 mg Documented by: Atorvastatin Calcium (Lipitor) 40 mg PO QHS [facility] Last Admin: 03/06/19 21:32 Dose: 40 mg Documented by: Carbamazepine (Tegretol) 200 mg PO TID [facility] Last Admin: 03/07/19 06:14 Dose: 200 mg Documented by: Dextrose (D50w Syringe) 0 gm IV X1 PRN; Protocol PRN Reason: Hypoglycemia Famotidine (Pepcid) 20 mg PO DAILY [facility] Furosemide (Lasix) 40 mg IV BID@1000,1800 [facility] Last Admin: 03/06/19 17:53 Dose: 40 mg Documented by: Glucagon () 1 mg IM .X1 PRN PRN Reason: Hypoglycemia Heparin Sodium (Beef Lung) (Heparin 500 Unit/5 Ml (100/Ml)) 500 unit IV UD PRN PRN Reason: HEPARIN FLUSH Heparin Sodium (Porcine) (Heparin Na) 5,000 unit SC Q12 [facility] Last Admin: 03/06/19 21:33 Dose: 5,000 unit Documented by: Hydralazine HCl (Apresoline Iv) 5 mg IV Q6H PRN PRN PRN Reason: BLOOD PRESSURE Sodium Chloride () 250 mls @ 15 mls/hr IV .[id number] PRN PRN Reason: SALINE FLUSH Last Infusion: 03/06/19 23:35 Dose: 0 mls/hr Documented by: Insulin Glargine (Lantus (Bkc)) 57 units SC QHS [facility] Last Admin: 03/06/19 21:37 Dose: 57 u Documented by: Insulin Human Lispro (Humalog Kwikpen (Bkc)) 0 unit SC ACHS [facility]; Protocol Last Admin: 03/06/19 21:38 Dose: 6 u Documented by: Labetalol HCl (Trandate) 5 mg IV X1 PRN PRN Reason: SBP > 160 prior to sheath pull Stop: 03/08/19 10:32 Lidocaine (Lidoderm Patch) 2 patch TOPICAL DAILY [facility]; Protocol Magnesium Hydroxide (Milk Of Magnesia) 30 ml PO DAILY PRN PRN PRN Reason: Constipation Last Admin: 03/06/19 19:19 Dose: 30 ml Documented by: Melatonin (Melatonin) 3 mg PO QHS PRN PRN PRN Reason: INSOMNIA Nitroglycerin (Nitrostat) 0.4 mg SUBLINGUAL Q5M PRN PRN Reason: CARDIAC/CHEST PAIN Ondansetron HCl (Zofran) 4 mg IV Q8H PRN PRN PRN Reason: NAUSEA/VOMITING Last Admin: 03/07/19 03:50 Dose: 4 mg Documented by: Polyethylene Glycol (Miralax) 34 gm PO X1 PRN PRN Reason: Bowel Movement Stop: 03/08/19 03:00 Prochlorperazine Edisylate (Compazine Iv) 5 mg IV Q4H PRN PRN PRN Reason: Breakthrough Nausea/Vomiting Psyllium Hydrophilic Mucilloid (Metamucil) 1 packet PO DAILY PRN PRN PRN Reason: Constipation Sodium Chloride () 10 - 40 ml IV UD PRN PRN Reason: SALINE FLUSH Last Admin: 03/07/19 03:50 Dose: 20 ml Documented by: Medical Necessity - Tobacco Use Smoking Status: Former smoker Tobacco Use: Non-smoker Assessment/Plan All Active Problems Hyperkalemia (Acute) Acute kidney injury superimposed on chronic kidney disease (Acute) Hyperglycemia (Acute) 63-year-old with past medical history of type II DM, insulin-dependent, CKD stage III, seizure disorder, on Tegretol, hypertension hyperlipidemia, CAD status post CABG who comes in with a syncopal episode and found to be hyperkalemic. 1. Syncope, likely secondary to hyperkalemia with EKG changes. Differentials include possible seizure as patient has history of seizure disorder Initially called out as acute STEMI, cardiac cath was unremarkable. We will continue to monitor 2. Hyperkalemia likely secondary to TIFFANIE on CKD stage 3, resolved with treatment Patient apparently was on losartan; 3 weeks ago K is 4.5, will continue to monitor 3. TIFFANIE on CKD stage III, likely multifactorial, in a known diabetic, with history of probable systolic CHF Most likely cardiorenal related, creatinine is stable Continue on Lasix, repeat blood work in am 4. Acute on chronic systolic CHF; he has diuresed more than 4.5 L of urine, his weight is down from 115.3-109.4 pounds Discussed with nephrology, would hold off diuresing today, reassess in a.m. 5. Type II DM, blood sugars are uncontrolled, will resume premeal humalog 25units TID Continue on home insulin, blood glucose checks ACHS, continue on ISS, check HbA1c 6. Hypertension, controlled now, will continue on home atenolol as well as PRN Hydralazine 7. Anterior chest wall/right lower chest wall tenderness, likely secondary to recent CPR, Continue with Tylenol, oxycodone and Lidoderm patches 8. Seizure disorder, on Tegretol, EEG ordered 9. Left shoulder pain, ongoing 4 days prior to arrival, will get x-ray of the left shoulder, continue with scheduled Tylenol 10. DVT prophylaxis with heparin subcu 11. GI prophylaxis with famotidine Code Visit Inpatient E&M: 52680 Subs Hosp L2
[2019-03-07] MEDS: Insulin Lispro 100 UNIT/ML INSULN.PEN SC ×4 (09:30→21:58)
[2019-03-07] MEDS: Lidocaine 5% Patch 2 PATCH TOPICAL (09:31)
[2019-03-07] MEDS: Aspirin 81 MG TAB.CHEW PO (09:31)
[2019-03-07] MEDS: Heparin Injection (Vial) 5,000 UNIT/ML VIAL 5000 UNIT SC ×2 (09:31→21:59)
[2019-03-07] MEDS: Famotidine 20 MG Tablet PO (09:32)
--- NOTE | 2019-03-07 09:41 | PCM.PN.CARD ---
Subjectve: Patient doing much better today. Potassium is been normalized with Kayexalate. His rhythm has normalized to normal sinus rhythm with baseline left bundle branch block. No chest pain noted. His respiratory status is markedly improved after IV Lasix therapy. Creatinine has remained stable.Telemetry negative. Objective: Vital Signs Temp Pulse Resp BP Pulse Ox 98.8 F 75 16 161/61 H 96 03/07/19 09:00 03/07/19 09:00 03/07/19 09:00 03/07/19 09:00 03/07/19 09:00 Oxygen Flow Rate (L/min) 2 Oxygen Delivery Method Room Air Weight: 241 lb 2.971 oz Body Mass Index (BMI) 36.4 Finger Stick Blood Glucose 476 Intake and Output for Last 24 Hours 03/05/19 03/06/19 03/07/19 23:59 23:59 23:59 Intake Total 843.35 / 843.35 280 / 280 Output Total 3750 / 3750 350 / 350 Balance -2906.65 / -2906.65 -70 / -70 General: Awake, Alert, Oriented x 3 HEENT: PERRL, EOMI, Sclera Non Icteric Neck: Supple, Good ROM, No Lymph Node Enlargement Lungs: Clear to auscultation Cardiovascular: Regular Rhythm, Normal S1, Normal S2, No Murmurs, No Rubs, No Gallops Vascular: No Carotid Bruits, Normal Femoral Pulses, Normal Radial Pulses, Normal Dorsalis Pedal Pulse, Normal Posterior Tibial Pulses Abdomen: Bowel Sounds Present, Soft, Non Tender, No HSM, No Organomegaly Extremities: No Cyanosis, No Clubbing, No edema Neurological: No Focal Motor or Sensory Deficit 03/06/19 09:30: WBC 10.4, RBC 3.42 L, Hgb 10.5 L, Hct 32.5 L, MCV 95.0 H, MCH 30.7, MCHC 32.3, Plt Count 185, MPV 10.0, Immature Gran % (Auto) 0.500, Neut % (Auto) 61.6, Lymph % (Auto) 26.1, [place] % (Auto) 9.5, Eos % (Auto) 2.0, Baso % (Auto) 0.3, Absolute Neuts (auto) 6.4, Nucleated RBC % 0 03/06/19 09:30: Sodium 134 L, Potassium 6.0 H*, Chloride 103, Carbon Dioxide 24.0, Anion Gap 7, BUN 45 H, Creatinine 2.13 H, Est GFR (MDRD) Af Amer 41 L, Est GFR (MDRD) Non-Af 34 L, BUN/Creatinine Ratio 21.1 H, Glucose 342 H, Calcium 8.6, Troponin I < 0.015 03/06/19 09:30: Hemoglobin A1c 9.4 H 03/06/19 09:54: pH 7.32 L, Bicarbonate Actual 17.4 L, POC Total CO2 18, Base Excess -9 L, O2 Saturation 81 L, ABG pCO2 33.6 L, ABG pO2 48 L 03/06/19 11:30: Sodium 135 L, Potassium 6.4 H*, Chloride 103, Carbon Dioxide 25.0, Anion Gap 7, BUN 47 H, Creatinine 2.00 H, Est GFR (MDRD) Af Amer 44 L, Est GFR (MDRD) Non-Af 36 L, BUN/Creatinine Ratio 23.5 H, Glucose 368 H, Calcium 9.1 03/06/19 17:50: Sodium 137, Potassium 6.1 H*, Chloride 104, Carbon Dioxide 29.0, Anion Gap 4 L, BUN 46 H, Creatinine 2.04 H, Est GFR (MDRD) Af Amer 43 L, Est GFR (MDRD) Non-Af 35 L, BUN/Creatinine Ratio 22.5 H, Glucose 199 H, Calcium 8.8 03/06/19 22:00: Potassium 6.0 H* 03/07/19 04:15: WBC 10.8, RBC 3.37 L, Hgb 10.5 L, Hct 31.9 L, MCV 94.7 H, MCH 31.2, MCHC 32.9, Plt Count 162, MPV 9.8, Immature Gran % (Auto) 0.500, Neut % (Auto) 82.9 H, Lymph % (Auto) 6.5 L, [place] % (Auto) 10.0, Eos % (Auto) 0.0, Baso % (Auto) 0.1, Absolute Neuts (auto) 9.0 H, Nucleated RBC % 0 03/07/19 04:15: Sodium 140, Potassium 4.5, Chloride 104, Carbon Dioxide 24.0, Anion Gap 12, BUN 48 H, Creatinine 2.19 H, Est GFR (MDRD) Af Amer 39 L, Est GFR (MDRD) Non-Af 33 L, BUN/Creatinine Ratio 21.9 H, Glucose 343 H, Calcium 8.8, Phosphorus 4.7, Total Bilirubin 0.50, Triglycerides 157, Cholesterol 198, LDL Cholesterol 117, VLDL Cholesterol 31, HDL Cholesterol 50 Rhythm: EKG: ECHO:LVEF around 50% with mild inferior hypokinesis. Stress Test: Cardiac Cath:Emergent catheterization yesterday demonstrated 2 out of 3 grafts widely patent, occluded saphenous vein graft to the RCA, occluded RCA, no intervention performed. PCI: CT Surgery: Holter monitor: EPS: PPM: CXR: Chest CT Scan: Medical Necessity - Tobacco Use Smoking Status: Former smoker Tobacco Use: Non-smoker Assessment/Plan 1. Syncope: The patient's syncope may have been hyperkalemia induced arrhythmia as his potassium was 6.4 when he arrived, and his EKG demonstrated wide-complex rhythm, almost the sign wave, which may precipitate a bradycardic event. His emergent catheterization demonstrated no overt lesions which required intervention at that time. I recommend the patient continue on baby aspirin, and hold off on adding Plavix until his head injury has resolved. 2. Hyperkalemia: Recommend starting the patient on Lasix 40 mg p.o. daily in an attempt to improve his blood pressure, avoid pulmonary hypertension and pulmonary edema, and to maintain his potassium. Apparently he was on no SCOTT inhibitor or ARB's which may have contributed to his hyperkalemia. Patient has baseline chronic renal insufficiency, and may require a renal consultation. 3. Hyperlipidemia: Given the patient's coronary disease status post bypass surgery requires aggressive LDL reduction.His LDL is 117 HDL is 40. Recommend continuing Crestor 40 mg p.o. nightly, and repeating lipid profile in 6 weeks time.. His LDL should be less than 70. 4. Seizure activity: Patient has a history of seizure disorder and has been on Tegretol for the better part of 40 years. EEG is pending. 5. Patient may be transferred to PCU. Discussed with Dr. Lucero.Patient will follow-up with Dr. Gaines going forward. Code Visit Inpatient E&M: 48344 Subs Hosp L2
--- NOTE | 2019-03-07 09:50 | CON.PCM_ITS ---
Problem List (1) Hyperkalemia Status: Acute (2) Acute kidney injury superimposed on chronic kidney disease Status: Acute Consultation - Renal PCP/ Referring MD: Requesting physician: [] Primary care physician: John Ramirez MD - History of Present Illness History of Present Illness: The patient is a 63 year old M Past medical history of coronary disease status post CABG, chronic kidney disease stage III, hypertension, diastolic heart failure. Patient felt dizzy at work and then collapsed. Patient's coworker did CPR and called EMS. By the time EMS arrived patient was awake alert oriented x2 with pulse. Patient then was brought to the emergency room where he found to have hyperkalemia with potassium 6.4, acute kidney injury on chronic kidney disease and wide-complex tachycardia. Patient has been complaining of left shoulder pain for 4 days. For the above symptoms and blood work, [facility] [place] code was called and patient was taken to the cardiac Sales Administration Manager. Cardiac cath did not show any occluded coronary artery. Chest x-ray showed atypical CHF Patient was then admitted to ICU. Patient received calcium gluconate, Lasix 100 mg IV, and Kayexalate. Patient presents with a creatinine 2.1 mg deciliter. Patient stated he was started on losartan 3 weeks ago. 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 creatinine remains stable today. Potassium level improved to 4.5. Patient made 3.7 L of urine output. Currently is in a room air. No shortness of breath. No chest pain. No nausea no vomiting Review of system: 12 system review is negative except generalized weakness - Allergies Allergies: Allergies codeine Allergy (Verified 01/26/19 01:01) Other lisinopril Allergy (Verified 03/06/19 12:24) Other - Current Medications Current Medications: Current Medications Acetaminophen (Tylenol) 1,000 mg PO TID [facility] Al Hydroxide/Mg Hydroxide (Mylanta Ii) 30 ml PO Q6H PRN PRN PRN Reason: Gastric Burning Albuterol Sulfate (Ventolin Aerosols) 2.5 mg INHALATION Q2H PRN PRN PRN Reason: SOB/Wheezing Albuterol/Ipratropium (Duoneb) 3 ml INHALATION Q4HWA.RT [facility] Last Admin: 03/07/19 07:23 Dose: Not Given Documented by: Aspirin (Aspirin, Baby) 81 mg PO DAILY@0800 [facility] Last Admin: 03/07/19 09:31 Dose: 81 mg Documented by: Atenolol (Tenormin (Beta Sharon)) 50 mg PO QHS [facility] Last Admin: 03/06/19 21:32 Dose: 50 mg Documented by: Atorvastatin Calcium (Lipitor) 40 mg PO QHS [facility] Last Admin: 03/06/19 21:32 Dose: 40 mg Documented by: Carbamazepine (Tegretol) 200 mg PO TID [facility] Last Admin: 03/07/19 06:14 Dose: 200 mg Documented by: Dextrose (D50w Syringe) 0 gm IV X1 PRN; Protocol PRN Reason: Hypoglycemia Famotidine (Pepcid) 20 mg PO DAILY [facility] Last Admin: 03/07/19 09:32 Dose: 20 mg Documented by: Furosemide (Lasix) 40 mg IV BID@1000,1800 [facility] Last Admin: 03/06/19 17:53 Dose: 40 mg Documented by: Glucagon () 1 mg IM .X1 PRN PRN Reason: Hypoglycemia Heparin Sodium (Beef Lung) (Heparin 500 Unit/5 Ml (100/Ml)) 500 unit IV UD PRN PRN Reason: HEPARIN FLUSH Heparin Sodium (Porcine) (Heparin Na) 5,000 unit SC Q12 [facility] Last Admin: 03/07/19 09:31 Dose: 5,000 unit Documented by: Hydralazine HCl (Apresoline Iv) 5 mg IV Q6H PRN PRN PRN Reason: BLOOD PRESSURE Sodium Chloride () 250 mls @ 15 mls/hr IV .[id number] PRN PRN Reason: SALINE FLUSH Last Infusion: 03/06/19 23:35 Dose: 0 mls/hr Documented by: Insulin Glargine (Lantus (Bkc)) 57 units SC QHS [facility] Last Admin: 03/06/19 21:37 Dose: 57 u Documented by: Insulin Human Lispro (Humalog Kwikpen (Bkc)) 0 unit SC ACHS [facility]; Protocol Last Admin: 03/07/19 09:30 Dose: 8 u Documented by: Labetalol HCl (Trandate) 5 mg IV X1 PRN PRN Reason: SBP > 160 prior to sheath pull Stop: 03/08/19 10:32 Lidocaine (Lidoderm Patch) 2 patch TOPICAL DAILY [facility]; Protocol Last Admin: 03/07/19 09:31 Dose: 2 patch Documented by: Magnesium Hydroxide (Milk Of Magnesia) 30 ml PO DAILY PRN PRN PRN Reason: Constipation Last Admin: 03/06/19 19:19 Dose: 30 ml Documented by: Melatonin (Melatonin) 3 mg PO QHS PRN PRN PRN Reason: INSOMNIA Nitroglycerin (Nitrostat) 0.4 mg SUBLINGUAL Q5M PRN PRN Reason: CARDIAC/CHEST PAIN Ondansetron HCl (Zofran) 4 mg IV Q8H PRN PRN PRN Reason: NAUSEA/VOMITING Last Admin: 03/07/19 03:50 Dose: 4 mg Documented by: Polyethylene Glycol (Miralax) 34 gm PO X1 PRN PRN Reason: Bowel Movement Stop: 03/08/19 03:00 Prochlorperazine Edisylate (Compazine Iv) 5 mg IV Q4H PRN PRN PRN Reason: Breakthrough Nausea/Vomiting Psyllium Hydrophilic Mucilloid (Metamucil) 1 packet PO DAILY PRN PRN PRN Reason: Constipation Sodium Chloride () 10 - 40 ml IV UD PRN PRN Reason: SALINE FLUSH Last Admin: 03/07/19 03:50 Dose: 20 ml Documented by: - Past Medical History Past Medical History (Chronic Problems): Chronic Problems Coronary artery disease (Chronic) Hypertension (Chronic) Type 2 diabetes mellitus (Chronic) Renal insufficiency (Chronic) - Past Surgical History Surgical History: coronary bypass surgery - 2015 - Social History Smoking Status: Former smoker Alcohol: None Drugs: None - Family History Maternal History Items: Heart Disease Paternal History Items: Hypertension - hx of quadruple bypass Patient Problems: Active and Suspected Problems Hyperkalemia (Acute) Acute kidney injury superimposed on chronic kidney disease (Acute) - Physical Exam General: Alert, Oriented x3 HEENT: Atraumatic Oral: Moist Mucosa Neck: Supple, No JVD Lungs: Clear to auscultation, Normal air movement, No rhonchi, No wheeze Cardiovascular: Regular rate, Regular Rhythm, Normal S1, Normal S2 Abdomen: Bowel Sounds Present, Soft, Non Tender, Non-Distended Extremities: No clubbing, No cyanosis, No edema Musculoskeletal: No Tenderness to Palpation of Joints or Extremities Lymphatic: No Cervical, Supraclavicular, or Inguinal Adenopathy Neurological: Cranial nerves II-XII grossly intact, Neuro grossly intact Psych/Mental Status: Appropriate Vital Signs Temp Pulse Resp BP Pulse Ox 98.8 F 75 16 161/61 H 96 03/07/19 09:00 03/07/19 09:00 03/07/19 09:00 03/07/19 09:00 03/07/19 09:00 Oxygen Flow Rate (L/min) 2 Oxygen Delivery Method Room Air Weight: 109.4 kg Body Mass Index (BMI) 36.4 Finger Stick Blood Glucose 476 Intake and Output for Last 24 Hours 03/05/19 03/06/19 03/07/19 23:59 23:59 23:59 Intake Total 843.35 / 843.35 280 / 280 Output Total 3750 / 3750 350 / 350 Balance -2906.65 / -2906.65 -70 / -70 Laboratory Tests Past 24 Hrs 03/06/19 03/06/19 03/06/19 09:30 09:30 09:54 WBC RBC Hgb Hct MCV MCH MCHC RDW Std Deviation RDW Coeff of Melissa Plt Count MPV Immature Gran % (Auto) Neut % (Auto) Lymph % (Auto) [place] % (Auto) Eos % (Auto) Baso % (Auto) Absolute Neuts (auto) Absolute Lymphs (auto) Nucleated RBC % Specimen Type CHIVO pH 7.32 L Bicarbonate Actual 17.4 L POC Total CO2 18 Base Excess -9 L O2 Saturation 81 L ABG pCO2 33.6 L ABG pO2 48 L Sodium 134 L Potassium 6.0 H* Chloride 103 Carbon Dioxide 24.0 Anion Gap 7 BUN 45 H Creatinine 2.13 H Estim Creat Clear Calc 28.13 Est GFR (MDRD) Af Amer 41 L Est GFR (MDRD) Non-Af 34 L BUN/Creatinine Ratio 21.1 H Glucose 342 H Hemoglobin A1c 9.4 H Calcium 8.6 Phosphorus Total Bilirubin AST ALT Alkaline Phosphatase Troponin I < 0.015 Total Protein Albumin Globulin Albumin/Globulin Ratio Triglycerides Cholesterol LDL Cholesterol VLDL Cholesterol HDL Cholesterol 03/06/19 03/06/19 03/06/19 11:30 17:50 22:00 WBC RBC Hgb Hct MCV MCH MCHC RDW Std Deviation RDW Coeff of Melissa Plt Count MPV Immature Gran % (Auto) Neut % (Auto) Lymph % (Auto) [place] % (Auto) Eos % (Auto) Baso % (Auto) Absolute Neuts (auto) Absolute Lymphs (auto) Nucleated RBC % Specimen Type pH Bicarbonate Actual POC Total CO2 Base Excess O2 Saturation ABG pCO2 ABG pO2 Sodium 135 L 137 Potassium 6.4 H* 6.1 H* 6.0 H* Chloride 103 104 Carbon Dioxide 25.0 29.0 Anion Gap 7 4 L BUN 47 H 46 H Creatinine 2.00 H 2.04 H Estim Creat Clear Calc 40.05 39.26 Est GFR (MDRD) Af Amer 44 L 43 L Est GFR (MDRD) Non-Af 36 L 35 L BUN/Creatinine Ratio 23.5 H 22.5 H Glucose 368 H 199 H Hemoglobin A1c Calcium 9.1 8.8 Phosphorus Total Bilirubin AST ALT Alkaline Phosphatase Troponin I Total Protein Albumin Globulin Albumin/Globulin Ratio Triglycerides Cholesterol LDL Cholesterol VLDL Cholesterol HDL Cholesterol 03/07/19 03/07/19 04:15 04:15 WBC 10.8 RBC 3.37 L Hgb 10.5 L Hct 31.9 L MCV 94.7 H MCH 31.2 MCHC 32.9 RDW Std Deviation 38.5 RDW Coeff of Melissa 11.1 L Plt Count 162 MPV 9.8 Immature Gran % (Auto) 0.500 Neut % (Auto) 82.9 H Lymph % (Auto) 6.5 L [place] % (Auto) 10.0 Eos % (Auto) 0.0 Baso % (Auto) 0.1 Absolute Neuts (auto) 9.0 H Absolute Lymphs (auto) 0.70 L Nucleated RBC % 0 Specimen Type pH Bicarbonate Actual POC Total CO2 Base Excess O2 Saturation ABG pCO2 ABG pO2 Sodium 140 Potassium 4.5 Chloride 104 Carbon Dioxide 24.0 Anion Gap 12 BUN 48 H Creatinine 2.19 H Estim Creat Clear Calc 36.57 Est GFR (MDRD) Af Amer 39 L Est GFR (MDRD) Non-Af 33 L BUN/Creatinine Ratio 21.9 H Glucose 343 H Hemoglobin A1c Calcium 8.8 Phosphorus 4.7 Total Bilirubin 0.50 AST 51 H ALT 35 Alkaline Phosphatase 141 H Troponin I Total Protein 7.1 Albumin 3.5 Globulin 3.6 Albumin/Globulin Ratio 1.0 Triglycerides 157 Cholesterol 198 LDL Cholesterol 117 VLDL Cholesterol 31 HDL Cholesterol 50 POC Glucose 03/07/19 03/06/19 03/06/19 06:13 21:36 17:13 POC Glucose 366 H 281 H 207 H 03/06/19 03/06/1919 15:12 12:30 10:51 POC Glucose 247 H 356 H 403 H Assessment/Plan All Active Problems Hyperkalemia (Acute) Acute kidney injury superimposed on chronic kidney disease (Acute) Hyperglycemia (Acute) 1-acute kidney injury and chronic kidney disease stage III. Baseline creatinine seems around 1.5 mg deciliter. Patient presented with a creatinine 2.1. This is likely from losartan and increase Lasix dose. Patient received IV contrast during cardiac cath yesterday. Patient is at risk for worsening kidney function for the coming 24 to 48 hours from IV contrast exposure. For the later reason, I will stop Lasix. No need for replacement therapy. Check UA. No need to expand acute kidney injury work-up for now Please avoid SCOTT inhibitor or ARB completely and stop losartan at discharge. Keep mean arterial pressure more than 75 I will check renal function in the morning. 2-hyperkalemia. Most part related to losartan and worsening kidney function. Potassium peaked at 6.6. Potassium level normalized today with medical treatment with Kayexalate, and Lasix. No need for renal placement therapy. Please avoid SCOTT inhibitor or ARB. We will need to check renal artery duplex as outpatient 3-hypertension: Patient is on atenolol and Lasix. I will stop Lasix. Might add hydralazine/Imdur if blood pressure rises. 4-CHF. Improved. No crackles by auscultation. No leg edema. Patient is in the room air. I will stop Lasix for now. If kidney function remains stable I will resume Lasix in 24-48 hours 2-[id number] tachycardia. Might be related to hyperkalemia. Resolved. Patient is hemodynamically stable. Thank you for allowing me to participate in Mr. Fischer's care. Please call if any question concern at [phone]. Plan of care was discussed with Dr. Vásquez and Dr. andreina Germain MD
--- NOTE | 2019-03-07 11:13 | CASEMGMT ---
RN CM Assessment Presentation: Resp Failure, Syncope, Hyperkalemia Intro role of CM and purpose of RN CM assessment to patient in room. Pt is awake, alert, painful.. Demographics, PCP and Pharmacy verified. Brief assessment completed, as pt is having painful episodes. PCP: Dr. Ramirez Specialists: Dr. Germain, Dr. Gaines Preferred Pharmacy: Pt gets insulins filled @ [facility], in [place], Other prescriptions are filled @ [facility] Insurance: MMO Prescription Benefit: yes LNOK: Daughter Janice Fischer Living Arrangements: Lives with his Mother Francisco in [place]. States he is generally independent, no DME use Transportation: drives DME: no ambulatory DME. Has BS machine and equipment for Blood glucose monitoring. HHC: none Patient DC goals: Home on discharge DC PLAN: Anticipate home on dc. PT/OT evaluations pending. CM will continue to follow and assist with any dc needs that may arise. Irineo MURRAY RN ACM
--- NOTE | 2019-03-07 12:06 | CT_ITS ---
STUDY: CT ABDOMEN AND PELVIS WITHOUT CONTRAST REASON FOR EXAM: Male, 63 years old. Right upper quadrant pain with nausea vomiting and fever. RADIATION DOSAGE (If Supplied By Facility): CTDIvol = ( 19.63 ) mGy, DLP = ( 1098.53 ) mGycm TECHNIQUE: Transaxial images were obtained from the dome of the diaphragm to the symphysis pubis without oral contrast, and without intravenous contrast. Sagittal and coronal images were reconstructed. Individualized dose optimization techniques were used for this CT. COMPARISON: None. FINDINGS: Minimal degree of groundglass appearance in the lower lobes suggestive of basilar dependent atelectasis. Coronary artery calcification. Prior CABG. Air is seen within the left lobe of the liver and the medial aspect of the right lobe of the liver. These branches extend to the periphery of the liver. This may represent air within the portal venous branches. If the patient has a history of prior papillotomy, this may represent air within the biliary ducts. The gallbladder is slightly distended containing high density products most likely representing vicarious excretion of IV contrast. Normal spleen. Normal pancreas. Normal bilateral adrenal glands. Normal right kidney. Normal left kidney. There is a small hiatal hernia. Normal small intestine. Diffuse circumferential wall thickening of the right hemicolon with increased markings in the surrounding peritoneal fat suggestive of a colitis. The appendix is visualized and appears normal. There is scattered atherosclerotic calcification of the abdominal aorta, without a demonstrated aneurysm. Normal inferior vena cava. Normal retroperitoneum. The urinary bladder is only partially filled. There is evidence of diffuse bladder wall thickening. Normal abdominal wall. There are diffuse degenerative changes of the visualized lumbar spine. CT/Abdomen/Pel W ORAL Cont Only IMPRESSION: Air is seen within the left lobe of liver as described. This may represent air within the biliary ducts if the patient has a history of prior papillotomy or instrumentation of the papilla or common bile duct. If not, air within the portal venous system should be ruled out. Mild distention of the gallbladder with high density substance within the suggestive of vicarious excretion of contrast. Correlation with ultrasound is recommended. Diffuse colitis of the right hemicolon. Electronically Signed: Chris Hare, at 15:41 EDT , Service support ,
[2019-03-07 12:16] LABS: Bedside Glucose 350 mg/dL (70-110)
[2019-03-07 12:31] LABS: GGTP 123 U/L (15-85)
--- NOTE | 2019-03-07 16:56 | PCM.CONS.GEN ---
Reason for Consult Date of Consultation: 03/07/19 Reason for Consultation: Abdominal pain/abnormal CAT scan History of Present Illness: The patient is a 63 year old M initially presented to the ER after having a syncopal episode at work and having CPR performed patient did come to with CPR did not need any defibrillation. Patient was found to have hyperkalemia which was treated with insulin/D50 as well as 3 doses of Kayexalate (15mg & 30mg) along with MiraLAX and Dulcolax yesterday currently has potassium is 4.5. Per patient's after CPR he had chest and right sided abdominal pain. Patient states that that has not changed since he came in. Patient is somewhat of a poor historian and is difficult to get a good history from him. Per Dr. Vásquez-department mgr his abdominal pain was worse today so a CT abdomen pelvis w PO & IV was order but only p.o. given contrast due to patient's elevated creatinine IV contrast was not given which did show portal venous gas along with inflammation of the right and transverse colon there also appears to be some air in the transverse mesentery. Patient has not had any antibiotics while he is been here he did undergo heart cath which was acutely normal. Patient's white blood cell count this morning was 10. Patient states she had a colonoscopy about 10 years ago, which was negative that time. Patient did have some diarrhea prior to having his episode at work for about the last week. With the Kayexalate MiraLAX and Dulcolax patient did have diarrhea last night, per nursing not bloody or black. Patient was on a cardiac diet this morning did have nausea and vomiting. Patient has not had any irregular rhythms while being here no history of A. fib. Patient currently has a new fever of 100.8 and 100.2. Past Medical History Past Medical History (Chronic Problems): Chronic Problems Coronary artery disease (Chronic) Hypertension (Chronic) Type 2 diabetes mellitus (Chronic) Renal insufficiency (Chronic) Allergies codeine Allergy (Verified 01/26/19 01:01) Other lisinopril Allergy (Verified 03/06/19 12:24) Other Home Medications: Ambulatory Orders Medication Instructions Recorded Aspirin [Aspirin, Baby] 81 mg PO DAILY@0800 04/11/13 Carbamazepine [Tegretol] 200 mg PO TIDCM 04/11/13 Insulin Glargine [Lantus SoloStar 57 units SC QHS 04/11/13 Pen] Insulin Lispro [Humalog] 25 unit SQ TID 04/11/13 Atenolol [Tenormin (beta kelly)] 50 mg PO QHS 11/10/17 Furosemide [Lasix] 20 mg PO DAILY 03/06/19 Rosuvastatin Calcium [Crestor] 20 mg PO QHS 03/06/19 Surgical History: coronary bypass surgery - 2014 Psychiatric History: No pertinent psych hx Lives: With Family Smoking Status: Former smoker Tobacco Use: Non-smoker Alcohol: None Drugs: None - *Family History Maternal History Items: Heart Disease Paternal History Items: Hypertension - hx of quadruple bypass Review of Systems Constitutional: Reports: Fever Eyes: Denies: Blurred vision HEENT: Denies: Difficulty Swallowing Cardiovascular: Reports: Chest Pain Respiratory: Denies: Shortness of breath at rest Gastrointestinal: Reports: Abdominal Pain, Diarrhea, Nausea, Vomiting Genitourinary: Denies: Dysuria Musculoskeletal: Reports: - - chest wall pain Skin: Denies: Rash Neurological: Denies: Blurred vision Psychiatric: Denies: Depression Hematologic/ Lymphatic: Denies: Easy Bleeding - Physical Exam General: Alert, Oriented x3, Cooperative, No apparent distress HEENT: Atraumatic Lungs: Normal air movement Cardiovascular: Regular rate, - - Tender to palpation of the sternum and ribs due to compressions Abdomen: Soft, Non-Distended, Tender - Tender in epigastric and right abdomen, patient's exam is not consistent as if pressing in the same spot when he is distracted he may or may not have any pain, no peritoneal signs Extremities: No clubbing, No cyanosis Vital Signs Temp Pulse Resp BP Pulse Ox 100.2 F H 86 16 144/54 H 98 03/07/19 16:00 03/07/19 16:00 03/07/19 16:00 03/07/19 16:00 03/07/19 16:00 Oxygen Flow Rate (L/min) 2 Oxygen Delivery Method Room Air Weight: 241 lb 2.971 oz Body Mass Index (BMI) 36.4 Finger Stick Blood Glucose 476 Intake and Output for Last 24 Hours 03/05/19 03/06/19 03/07/19 23:59 23:59 23:59 Intake Total 843.35 / 843.35 760 / 760 Output Total 3750 / 3750 750 / 750 Balance -2906.65 / -2906.65 Laboratory Tests Past 24 Hrs 03/06/19 03/06/19 03/07/19 17:50 22:00 04:15 WBC 10.8 RBC 3.37 L Hgb 10.5 L Hct 31.9 L MCV 94.7 H MCH 31.2 MCHC 32.9 RDW Std Deviation 38.5 RDW Coeff of Melissa 11.1 L Plt Count 162 MPV 9.8 Immature Gran % (Auto) 0.500 Neut % (Auto) 82.9 H Lymph % (Auto) 6.5 L [place] % (Auto) 10.0 Eos % (Auto) 0.0 Baso % (Auto) 0.1 Absolute Neuts (auto) 9.0 H Absolute Lymphs (auto) 0.70 L Nucleated RBC % 0 Sodium 137 Potassium 6.1 H* 6.0 H* Chloride 104 Carbon Dioxide 29.0 Anion Gap 4 L BUN 46 H Creatinine 2.04 H Estim Creat Clear Calc 39.26 Est GFR (MDRD) Af Amer 43 L Est GFR (MDRD) Non-Af 35 L BUN/Creatinine Ratio 22.5 H Glucose 199 H Calcium 8.8 Phosphorus Total Bilirubin GGT AST ALT Alkaline Phosphatase Total Protein Albumin Globulin Albumin/Globulin Ratio Triglycerides Cholesterol LDL Cholesterol VLDL Cholesterol HDL Cholesterol 03/07/19 03/07/19 04:15 04:15 WBC RBC Hgb Hct MCV MCH MCHC RDW Std Deviation RDW Coeff of Melissa Plt Count MPV Immature Gran % (Auto) Neut % (Auto) Lymph % (Auto) [place] % (Auto) Eos % (Auto) Baso % (Auto) Absolute Neuts (auto) Absolute Lymphs (auto) Nucleated RBC % Sodium 140 Potassium 4.5 Chloride 104 Carbon Dioxide 24.0 Anion Gap 12 BUN 48 H Creatinine 2.19 H Estim Creat Clear Calc 36.57 Est GFR (MDRD) Af Amer 39 L Est GFR (MDRD) Non-Af 33 L BUN/Creatinine Ratio 21.9 H Glucose 343 H Calcium 8.8 Phosphorus 4.7 Total Bilirubin 0.50 GGT 123 H AST 51 H ALT 35 Alkaline Phosphatase 141 H Total Protein 7.1 Albumin 3.5 Globulin 3.6 Albumin/Globulin Ratio 1.0 Triglycerides 157 Cholesterol 198 LDL Cholesterol 117 VLDL Cholesterol 31 HDL Cholesterol 50 POC Glucose 03/07/19 03/07/19 03/06/19 12:07 06:13 21:36 POC Glucose 350 H 366 H 281 H 03/06/19 17:13 POC Glucose 207 H Assessment/Plan All Active Problems Hyperkalemia (Acute) Acute kidney injury superimposed on chronic kidney disease (Acute) Hyperglycemia (Acute) 63-year-old male admitted after collapse at work status post CPR with hyperkalemia, abnormal CT with portal venous gas and a thickened right and transverse colon 1. Did review CT abdomen pelvis findings with the patient and discuss concern for necrotic/ischemic bowel causing portal venous gas. Also discussed that his exam does not seem as bad currently as his CAT scan looks. As he is not hypotensive or tachycardic patient is on atenolol as well, no peritoneal signs on exam. Discussed with patient unsure the exact cause of this portal venous gas but looks could be due to the ischemic colon only way to really tell if necrotic would be to take a look with the diagnostic laparoscopy and if it were to look necrotic we would need to proceed with likely laparotomy, bowel resection, possible stoma. Currently patient is unsure if he would want surgery. He wants to talk to his kids first. Asked patient if he would like me to call his kids he said no that they will be in later today. Did discuss with patient that this could be urgently needed especially if his vitals were to change potentially causing him to get really sick and could even lead to , patient still wanted to wait until they came in to talk to them. We will check a stat CBC with differential and lactic acid and start Zosyn IV. Question if some of the change the colon could be from the increased amount of laxative due to the hyperkalemia with initially having some ischemic colon which could make the ischemic colon worse. patient does not seem to have much calcification in his aorta, so question of this could be embolic in nature, but I would expect an emboli to effect ileocolic-so distal SB and Right colon, not distal transverse. Or this could be due to kayexalate with his chronic renal disease causing bowel necrosis. Also discussed with Dr. Vásquez. Await labs, will continue to monitor closely, and await patient's decision on surgery. Addendum: WBC is 16, lactic is 1.6, did talk with the daughter on the phone, she was interested in transfer to [facility]. Patients 4 years ago from stage IV colon cancer, so the daughter thinks that he may have shut down when hearing about the colon initially. d/w daughter that the bowel necrosis may be from the kayexalate as it can cause bowel necrosis, this could make his surgery more challenging knowing how much bowel will need to be removed and he could need multiple trips to the OR. This appears to be a developing bowel necrosis as he has had increased abd pain per ICU dr and now increased WBC, lactic currently wnl. d/w Dr. Lucero and Dr. Vásquez. Dr. Lucero is talking with [facility] for transfer. Joann Matias M.D. Pager: [phone] [facility] [address] [place] [address], [facility], [address] [place] [address] Office: [phone] Code Visit Inpatient E&M: 25486 Init Hosp L3
[2019-03-07 17:10] LABS: Bedside Glucose 329 mg/dL (70-110)
[2019-03-07 17:40] LABS: Absolute Lymphocyte Count 0.68 X10^3/uL (0.83-4.51); Absolute Neutrophil Count 14.1 X10^3/uL (2.0-7.7); Basophil# 0.02 X10^3/uL; Basophil% 0.1 % (0-1); Hematocrit 31.2 % (40-54); Hemoglobin 10.4 g/dL (13.0-16.5); Lymphocyte # 0.68 X10^3/ul (4.0); Lymphocyte % 4.2 % (19-41); Mean Corp Hgb Conc 33.3 g/dL (32-36); Mean Corpuscular Hgb 31.3 pg (27.0-32.0); Mean Platelet Vol. 10.1 fl (6.2-12.0); Monocyte# 1.31 X10^3/uL; Monocyte% 8.1 % (0-10); NRBC Flagged by Analyzer 0 % (0-5); Neutrophil % 87.1 % (47-70); POSITIVE MORPHOLOGY YES; Platelet Count 134 K/mm3 (150-450); RBC Distribution Width CV 11.1 % (11.6-14.6); RBC Distribution Width SD 37.7 fl (35.1-43.9); Red Blood Count 3.32 M/mm3 (4.6-6.2); White Blood Count 16.2 K/mm3 (4.4-11.0)
[2019-03-07 18:03] LABS: Lactic Acid 1.6 mmol/L (0.4-2.0)
[2019-03-07 18:08] LABS: Differential Indicated SCAN CRITERIA MET
[2019-03-07 18:10] LABS: Anisocytosis RARE; Macrocytosis RARE; Platelet Estimate SLT DEC (ADEQ); Red Cell Morphology N CHROM NORMAL (NORM C&C)
--- NOTE | 2019-03-07 20:05 | PN_ITS ---
Progress Note Discussed with patient and family about transfer to other Hospital as a bed is not yet available at [facility]. Patient does not want to be transferred to any other Hospital.
[2019-03-07] MEDS: 0.9% Normal Saline 1,000 ML 100 ML IV (20:06)
[2019-03-07 21:58] LABS: Hematocrit 31.6 % (40-54); Hemoglobin 10.5 g/dL (13.0-16.5)
[2019-03-07 22:10] LABS: Bedside Glucose 283 mg/dL (70-110)
[2019-03-07 22:22] LABS: Lactic Acid 1.3 mmol/L (0.4-2.0)
--- NOTE | 2019-03-08 07:41 | PCM.DC.SUM ---
Discharge Date and Diagnosis Date of Admission: 03/06/19 Date of Discharge: 03/08/19 - Primary Discharge Diagnosis Acute ischemic bowels Syncope Hyperkalemia TIFFANIE on CKD stage III Acute on chronic systolic CHF Hyperglycemia - Secondary Discharge Diagnosis Chronic Problems Coronary artery disease (Chronic) Hypertension (Chronic) Type 2 diabetes mellitus (Chronic) Renal insufficiency (Chronic) Hospital Course and Treatment Imaging Results: Clinical Impression(s) from Imaging Studies Brain CT 03/06/19 09:33 IMPRESSION: Scalp hematoma overlying the posterior aspect of the right parietal occipital bone. Electronically Signed: Chris Hare, at 9:51 EDT , Service support , Chest X-Ray 03/06/19 11:00 IMPRESSION: Atypical CHF more prominent in the right lung most likely positional in nature. Electronically Signed: Chris Hare, at 12:30 EDT , Service support , Shoulder X-Ray 03/07/19 05:55 IMPRESSION: Normal x-ray examination of the shoulder. Electronically Signed: Chris Hare, at 9:31 EDT , Service support , Chest X-Ray 03/07/19 08:19 IMPRESSION: No acute cardiopulmonary disease. Electronically Signed: Mike Vega DO at 12:29 EDT Tel , Service support , Abdomen CT 03/07/19 12:06 IMPRESSION: Air is seen within the left lobe of liver as described. This may represent air within the biliary ducts if the patient has a history of prior papillotomy or instrumentation of the papilla or common bile duct. If not, air within the portal venous system should be ruled out. Mild distention of the gallbladder with high density substance within the suggestive of vicarious excretion of contrast. Correlation with ultrasound is recommended. Diffuse colitis of the right hemicolon. Electronically Signed: Chris Hare, at 15:41 EDT , Service support , Eye Technician Nephrology General surgery Operations: None Procedures: Cardiac catheterization Summary of Care Provided: 63-year-old with past medical history of type II DM, insulin-dependent, CKD stage III, seizure disorder, on Tegretol, hypertension hyperlipidemia, CAD status post CABG who comes in with a syncopal episode and found to be hyperkalemic. Patient has been complaining of left shoulder pain ongoing for 4 days. He went to work early on the morning of the admission. He felt dizzy and there was a last thing he remembered. He was reportedly said to have had a syncopal episode without any observed seizure-like activity. He was said to be without a pulse and received CPR with chest compressions. Patient, on arrival by EMS, had a pulse and was alert and oriented x2. His vitals showed temperature 96.1 F, heart rate 152, blood pressure 139/70, respiratory rate 18, SPO2 was 82% on room air and this improved to 90% on nonrebreather mask. He was observed to have begun to vomit. He had several episodes of vomiting in the emergency department. An EKG done showed wide-complex tachycardia. This was overhead paged as a STEMI alert. Patient was also noted to be hyperkalemic with potassium of 6.0. Sodium was 143, chloride 103, bicarbonate 25, anion gap of 7, BUN was 45, was 2.13; Creatinine is 1.30. WBC count was 10.4, hemoglobin 10.5, platelet count 185. He received calcium gluconate, IV insulin with dextrose. Patient underwent emergent cardiac catheterization which showed triple-vessel CAD of the LAD, left circumflex and RCA. Occluded saphenous graft to RCA. There was wide patency of the ORTIZ to LAD as well as SVG to OM. No interventions were performed. Chest X-ray done later in ICU was suggestive of acute CHF. His management in the ICU consisted of hypoxia with use of non-rebreather oxygen. He received large doses of Lasix, 80 mg IV x1 then 20 mg IV 4 hours later. He improved and his oxygenation and was on 2 L of oxygen at the end of the day. He remained hyperkalemic requiring use of Kayexalate 30 g x 1 and later 15 g x 1, MiraLAX and milk of magnesia. Patient had a large bowel movement. His repeat potassium the next morning was 4.5. He was seen by feed mill manager, nephrology and cardiology. His creatinine remained stable the next morning. Patient had EEG done the day of discharge, report is pending on the time of discharge summary. He complained of progressive right-sided lower chest wall pain as well as right upper quadrant pain. He had received Tylenol as well as Lidoderm patches. Repeat Chest x-ray done was negative for acute fractures. Patient did not have significant elevation in his liver function tests. His total bilirubin was 0.50, GGT was 123, AST 51, ALT 35, ALP 141, total protein was 7.1 With persistence of pain, a CAT scan was done that was suggestive of air in the portal venous system as well as transverse colitis. General surgery was consulted. Patient also began to drop his blood pressure. His blood pressure was in the 150s in the morning and dropped to about 100. His lactic acid was 1.6. He also had some evidence of rectal bleeding. Discussed with general surgery, his clinical presentation is likely of ischemic bowels. This is unlikely have been precipitated by use of kayexalate for hyperkalemia management. The decision was made to transfer patient to a tertiary institution. Patient was transferred to the [facility] the patient's request as he has all his care there. He was transferred to [facility] in a stable condition. Subjective: See progress note of the day Objective: Physical Exam General: Alert, Oriented x3, Cooperative, off oxygen HEENT: Atraumatic, PERRLA, EOMI, Normocephalic Oral: Moist Mucosa Neck: Supple Lungs: Clear to auscultation, Normal air movement, tenderness over anterior right sided chest Cardiovascular: Regular rate, Regular Rhythm, Normal S1, Normal S2, No murmurs Abdomen: Bowel Sounds Present, Soft, Hypoactive Bowel Sounds, tenderness over the right lower anterior chest wall and right upper quadrant and flanks as well as epigastric region, not consistent from repeat abdominal exams, with guarding but no rebound tenderness Extremities: No edema Skin: No rashes, No breakdown Musculoskeletal: No Tenderness to Palpation of Joints or Extremities Neurological: Cranial nerves II-XII grossly intact, Neuro grossly intact Psych/Mental Status: Normal Affect, Appropriate - Physical Exam Vital Signs Temp Pulse Resp BP Pulse Ox 100.2 F H 84 19 H 161/63 H 92 03/07/19 16:00 03/07/19 21:00 03/07/19 21:00 03/07/19 21:00 03/07/19 21:00 Oxygen Flow Rate (L/min) 2 Oxygen Delivery Method Room Air Weight: 109.4 kg Body Mass Index (BMI) 36.4 Finger Stick Blood Glucose 476 Intake and Output for Last 24 Hours 03/06/19 03/07/19 03/08/19 23:59 23:59 23:59 Intake Total 843.35 / 843.35 991.46 / 991.46 Output Total 3750 / 3750 1450 / 1450 Balance -2906.65 / -2906.65 -458.54 / -458.54 Laboratory Tests Past 24 Hrs 03/07/19 03/07/19 03/07/19 04:15 17:23 17:23 WBC 16.2 H RBC 3.32 L Hgb 10.4 L Hct 31.2 L MCV 94.0 MCH 31.3 MCHC 33.3 RDW Std Deviation 37.7 RDW Coeff of Melissa 11.1 L Plt Count 134 L MPV 10.1 Immature Gran % (Auto) 0.500 Neut % (Auto) 87.1 H Lymph % (Auto) 4.2 L [place] % (Auto) 8.1 Eos % (Auto) 0.0 Baso % (Auto) 0.1 Absolute Neuts (auto) 14.1 H Absolute Lymphs (auto) 0.68 L Nucleated RBC % 0 Diff Path Review May foll Platelet Estimate SLT DEC RBC Morphology N CHROM Anisocytosis RARE Macrocytosis RARE Lactic Acid 1.6 GGT 123 H 03/07/19 03/07/19 21:45 21:45 WBC RBC Hgb 10.5 L Hct 31.6 L MCV MCH MCHC RDW Std Deviation RDW Coeff of Meilssa Plt Count MPV Immature Gran % (Auto) Neut % (Auto) Lymph % (Auto) [place] % (Auto) Eos % (Auto) Baso % (Auto) Absolute Neuts (auto) Absolute Lymphs (auto) Nucleated RBC % Diff Path Review Platelet Estimate RBC Morphology Anisocytosis Macrocytosis Lactic Acid 1.3 GGT POC Glucose 09/19/19 09/19/19 09/19/19 21:58 17:08 12:07 POC Glucose 283 H 329 H 350 H Home Medications: Medications to take at Discharge Aspirin [Aspirin, Baby] 81 mg PO DAILY@0800 04/11/13 Carbamazepine [Tegretol] 200 mg PO TIDCM 04/11/13 Insulin Glargine [Lantus SoloStar Pen] 57 units SC QHS 04/11/13 Insulin Lispro [Humalog] 25 unit SQ TID 04/11/13 Atenolol [Tenormin (beta kelly)] 50 mg PO QHS 11/10/17 Furosemide [Lasix] 20 mg PO DAILY 03/06/19 Rosuvastatin Calcium [Crestor] 20 mg PO QHS 03/06/19 Primary Care Physician: Jonh Ramirez MD [Primary Care Provider] - Please Follow Up With: Suleman Gaines MD Disposition: Acute care Hospital Minutes spent on discharge:: 70 Patient Condition:: Guarded Medical Necessity - Tobacco Use Smoking Status: Former smoker Tobacco Use: Non-smoker Meaningful Use Info Meaningful Use Diagnoses (Choose all that apply): CHF - CHF SCOTT/ARB ordered at discharge?: No Reason SCOTT/ARB not ordered?: Worsening renal disease Documented LVEF (%): 55 Code Visit Inpatient E&M: 32619 Disch Hosp
[2019-03-08 15:19] LABS: Pathologist Review Reviewed
--- NOTE | 2019-03-11 13:20 | EEG ---
- Electroencephalogram Date of service 03/07/2019 History EEG is being done in this 63 yr M to rule out seizures EEG Description: This is an 18 channel EEG with 10-20 lead placement system. Bipolar montages, Referential and Circumferential montages were reviewed. Photic stimulation was performed but Hyperventilation was not performed. The posterior dominant rhythm is 9 HZ synchronous, symmetric, reacting to eye opening and closing. Photo stimulation did not elicit normal driving response or any no abnormal photoparoxysmal response, Hyperventilation was not performed. Sleep was identified. There is no abnormal background slowing noted. There was no epileptiform discharges or electrographic seizures noted during this recording. EKG artefact and muscle artefact noted during the record. Per tech documentation patient had multiple episodes of apnea and oxygen desaturation during the record. EEG Interpretation This is a normal awake and asleep EEG. But per tech documentation patient had multiple episodes of apnea and oxygen desaturation during the record. Patient should be evaluated for COBY, will defer further evaluation/management of sleep apnea to PCP/ordering physician. Clinical correlation is advised. There is no epileptiform discharges or electrographic seizures noted during the record.
--- NOTE | 2019-03-14 09:58 | CL.D_ITS ---
Patient Name: ROMEL MCKEON Study Date: 03/06/2019 Performing: Suleman Gaines MD Ht: 61.81 inches 157 cm : 1955 Wt: 253.53 lbs 115 kg Age: 63 Gender: male BSA: 2.11 PROCEDURE(S) PERFORMED [id number]/COR/LV/CABG DC11-AO ROOT ANGIO WITH HEART CATH CLINICAL PROFILE AND INDICATIONS Indications: ACS <= 24 hrs, LV Dysfunction Heart Failure: NYHA Class: 2, Newly Diagnosed: No, Heart Failure Type: Systolic Stress/Imaging Stress/Image Study Performed: No CAD Presentations: Unstable angina. Other: Syncope requiring CPR, Wide complex rhythm. Other: TERESA TN called in ED, but no overt occlusion found on emergent cath. No PCI needed or performed. Comorbidities/Risk Factors: Hypertension Dyslipidemia Prior CHF Prior CABG Chronic Lung Disease CONCLUSIONS Segmented LV systolic dysfunction- Moderate Triple vessel CAD of the LAD, LCX and RCA Widely patent ORTIZ to LAD Widely patent SVG to OM with mild proximal anastamotic narrowing which does not appear to be flow kellogg iting. Occluded SVG to RCA. LVEF: by LV gram 40-45 % Elevated Left Ventricular End Diastolic Pressure RECOMMENDATIONS Pt's syncope most likely due to hyperkalemia induced arrhythmia. Pt treated in chemical laboratory tester for K=6.1 wi th IV calcium, IV glucose and IV insulin. Manual sheath removal once pt's nausea/vomiting has improved. DESCRIPTION OF PROCEDURE The patient arrived to the procedure lab. The risks and benefits of the procedure as well as a full d escription of our services here and current unavailability of surgical backup were fully explained to the patient and/or their significant other prior to the catheterization. The Timeout was completed, verifying the correct patient and procedure. The patient's procedural site was prepped and draped in the usual fashion. Local anesthetic was given subcutaneously to right groin region with Lidocaine 2%. Using a modified Seldinger technique, arterial access was obtained via the right femoral artery, a 6 Fr sheath was inserted. Left Coronary Artery selective angiography was performed in multiple views u sing a 4 Fr. JL5 catheter. Saphenous Vein graft to the Circumflex selective angiography was performed in multiple views using a 4 Fr. JL5 catheter. Left internal mammary artery graft to the LAD selectiv e angiography was performed in multiple views using a 4 Fr. JL5 catheter. Saphenous Vein graft to the RCA selective angiography was performed in multiple views using a 4 Fr. AR MOD 2 cathete r-Occluded. Right Coronary Artery selective angiography was then performed in multiple views using a 4 Fr. AR MOD 2 catheter.The arterial sheath was sutured in place and capped d/t N/V CORONARY ANGIOGRAPHY DOMINANCE: Right Dominant LEFT HEART ASSESSMENT Left Ventricular Ejection Fraction: by LV Gram 40 % Inferior Basal Hypokinesis - Moderate. Anterior Hypokinesis - Mild LVEDP: 24 mmHg LEFT MAIN: Mild luminal irregularities LEFT ANTERIOR DESCENDING ARTERY: PROX LAD: 85 % Stenosis CIRCUMFLEX ARTERY: PROX CIRC: 85 % Stenosis RIGHT CORONARY ARTERY: is occluded GRAFTS: ORTIZ graft to the LAD is patent Saphenous Vein graft to the 1st OM is patent Saphenous Vein graft to the RCA is totally occluded AORTIC ROOT: Angiographically normal COMPLICATIONS No Complications PROCEDURE MEDICATIONS Oxygen: 2 L/min via nasal cannula Oxygen: 100 % FiO2 via non-rebreather mask Calcium Chloride 1gm/10ml 1 amp 03/06/2019 10:01:14 Insulin 10 unit(s) IV 03/06/2019 10:18:31 Zofran 4 mg IV 03/06/2019 09:45:00 Zofran 4 mg IV 03/06/2019 10:06:44 IV Bolus: .9 NaCl 700ml total 03/06/2019 09:52:49 SUMMARY OF HEMODYNAMIC DATA Time AIR REST ECG 09:45:37 AO 133/81 (105) SA 09:49:42 LV 158/-5, 20 09:59:42 LV 160/-4, 24 09:59:48 LVp 161/-5, 22 09:59:53 AOp 163/58 (102) 09:59:58 10:19:00 Signed By Suleman Gaines MD On 03/06/2019 10:21:16 AM Suleman Gaines MD
== END 2019-03-07 22:08 | disposition short-term general hospital (02) | DRG 393 ==
LOC: ED 09:35 → ICU 10:39
PROVIDERS: Hospitalist; Internal Medicine Critical Care Medicine; Surgery; Admitting Provider Internal Medicine; Emergency Provider Emergency Medicine; Family Provider Family Medicine; PCP Family Medicine; Referring Provider Internal Medicine Cardiovascular Disease; Visit Provider Internal Medicine
DX: K55.059 Acute (reversible) ischemia of intestine, part and extent unspecified (principal); I50.23 Acute on chronic systolic (congestive) heart failure; J96.01 Acute respiratory failure with hypoxia; I13.0 Hypertensive heart and chronic kidney disease with heart failure and stage 1 through stage 4 chronic kidney disease, or unspecified chronic kidney disease; N17.9 Acute kidney failure, unspecified; R55 Syncope and collapse; E87.5 Hyperkalemia; E11.22 Type 2 diabetes mellitus with diabetic chronic kidney disease; N18.3 Chronic kidney disease, stage 3 (moderate); E11.65 Type 2 diabetes mellitus with hyperglycemia; I25.10 Atherosclerotic heart disease of native coronary artery without angina pectoris; G40.909 Epilepsy, unspecified, not intractable, without status epilepticus; E78.5 Hyperlipidemia, unspecified; Z95.1 Presence of aortocoronary bypass graft; Z79.4 Long term (current) use of insulin; Z79.82 Long term (current) use of aspirin; Z79.899 Other long term (current) drug therapy; Z87.891 Personal history of nicotine dependence
CPT/HCPCS: 36415; 36569; 70450; 71045; 71046; 73030; 74176; 80048; 80053; 80061; 82803; 82962; 82977; 83036; 83605; 84100; 84132; 84484; 85014; 85018; 85025; 93005; 93306; 93459; 93567; 94002; 94003; 94640; 95819; 97803; 99283; J7030; J7050; Q9957; Q9967; A4216; C1769; C8929; J1940; J2405

== ENCOUNTER 2019-05-27 10:18 | Day surgery (SDC) | payer OTHER, SELFPAY ==
[2019-03-06 09:58] VITALS: BMI 36.4
--- NOTE | 2019-05-26 15:06 | HP.PCM_ITS ---
History and Physical Date of Admission: 05/27/19 Carlos Fischer 1955 ? ? REFERRING PHYSICIAN: Shaina Cartwright MD ? CHIEF COMPLAINT: Consult ([facility] d/c mesenteric ischema) ? HPI: The patient is a 63 year old male presented to [facility] ED with syncopal episode. Found to have acute cardiac episode, urgent cardiac catheterization done. Diagnosed with acute on chronic CHF, seizure episode and acute respiratory failure episode. He developed abdominal pain during this hospitalization and CT scan revealed thickened colonic wall, transverse and right colon with portal vein gas. Patient was then transferred to [facility], per family's request. He was managed medically and no surgery required. Patient presently notes loose stools, but denies blood in stools. He states that he feels much improved since discharge. Denies abdominal pain. Denies fevers. Denies nausea/emesis. Denies chest pain. He last had a colonoscopy about 10 years ago. No colon cancer known in family. ? ? PAST MEDICAL HISTORY ? (HFpEF) heart failure with preserved ejection fraction (HCC) 03/07/2019 ? Anemia, unspecified ? ? CAD (coronary artery disease) ? ? Calculus of gallbladder without cholecystitis without obstruction 09/30/2016 ? CKD (chronic kidney disease) 03/07/2019 ? Diverticulosis 06/08/2012 ? Diverticulosis of colon (without mention of hemorrhage) ? ? Esophagitis, unspecified ? ? Gastroesophageal reflux disease with esophagitis 03/09/2019 ? Generalized convulsive epilepsy (HCC) ? ? History: No seizures for many years, on carbamazepine 400mg tid. Assessment: Episode of disorientation, slurred speech 09/15, resolved immediately. Neurology consulted, no seizures were seen on EEG. Tegretol levels were elevated 4.9/13.7. Recent today 8.4 -no seizure activity noted .Plan: follow up in stroke neurology as outpatient, appointment requested ? Generalized convulsive epilepsy without mention of intractable epilepsy ? ? History of stroke 03/01/2019 ? Hypertension 09/15/2014 ? History: H/o HTN, preop meds metoprolol 100mg bid, imdur 30mg Assessment: SBP 130's Plan: Continue metoprolol and low dose lasix at discharge ? Ischemia, bowel (HCC) 03/07/2019 ? Lactose intolerance ? ? LVH (left ventricular hypertrophy) 03/01/2019 ? Mixed hyperlipidemia 04/29/2005 ? History: H/o HPL. preop Tri-544, chol-221, HDL-31, LDL-unable to assay on lovastatin 80mg daily preop Assessment: CAD, LFT's normal Plan: continue lipitor 40mg ? Non compliance with medical treatment ? ? Normocytic anemia 05/22/2015 ? Obesity, Class I, BMI 30-34.9 03/01/2019 ? Type II or unspecified type diabetes mellitus with ophthalmic manifestations, uncontrolled(250.52) ? ? PAST SURGICAL HISTORY ? COLONOSCOP W/ OR W/O BRSH SPEC ? 05/02/08 ? EGD W/O BRSH SPECIMEN W/BX ? 05/02/08 ? PAST SURGICAL HISTORY OF ? 2007 ? Cardiac Stent ? PAST SURGICAL HISTORY OF ? ? ? cabg ? REPAIR OF NASAL SEPTUM ? 1979 ? Septoplasty ? STENTS (SPECIFY) ? 2007 ? ? MEDICATIONS: cholecalciferol, vitamin D3, (VITAMIN D3 ORAL), Take by mouth. MV-Min-Vit H-Pxaw-Pcaagj-Hb124 (A[place]NE, LYSINE HCL,) 1,000-50 mg tbef, Take by mouth. carvedilol (COREG) 12.5 mg tablet, Take 1 tablet by mouth twice daily with meals. rosuvastatin (CRESTOR) 40 mg tablet, Take 1 tablet by mouth daily at bedtime. furosemide (LASIX) 40 mg tablet, Take 1 tablet by mouth daily except when directed to take an additional dose by physician for fluid weight metOLAzone (ZAROXOLYN) 5 mg tablet, Take 1 tablet by mouth once daily. Take 1 tablet daily for 3 days in a row as instructed. isosorbide mononitrate ER (IMDUR) 30 mg 24 hr tablet, Take 1 tablet by mouth once daily. insulin lispro (HUMALOG KWIKPEN INSULIN) 100 unit/mL inpn, Takes 25-28u TID with meals based on blood sugar. insulin glargine (LANTUS SOLOSTAR, BASAGLAR KWIKPEN) 100 unit/mL (3 mL) inpn, Inject 30 Units subcutaneously twice daily. nitroglycerin sublingual (NITROQUICK) 0.4 mg SL tablet, Dissolve 1 tablet under the tongue as needed. FOR CHEST PAIN. IF NO RELIEF CALL 911 carBAMazepine (TEGRETOL) 200 mg tablet, Take 2 tablets by mouth three times daily. aspirin 81 mg chewable tablet, Take 1 tablet by mouth once daily. ? ? ALLERGIES: Codeine; Lipitor [Atorvastatin Calcium]; Losartan ? PERSONAL HISTORY: Tobacco Use ? Smoking status: Former Smoker ? ? Packs/day: 2.00 ? ? Years: 15.00 ? ? Pack years: 30.00 ? ? Types: Cigarettes ? ? Last attempt to quit: 03/24/1985 ? ? Years since quittin.1 ? Smokeless tobacco: Never Used Substance Use Topics ? Alcohol use: No ? Drug use: No FAMILY HISTORY ? Heart Mother ? ? Ischemic Heart Disease Father ? ? Hypertension Father ? ? ? REVIEW OF SYSTEMS: General: ?Negative for weight loss, night sweats, fever, and fatigue Head/Neck: ?Negative for photophobia, oral ulcers/sores, metallic or bitter taste, epistaxis, and chronic nasal congestion Cardiac: Positive for palpitations, lightheadedness, and dizziness; Negative for syncope, orthopnea, chest pain or pressure, and PND Vascular: Positive for edema; Negative for raynauds, and claudication Pulmonary: ?Negative for hemoptosis, dyspnea, and cough GastroIntestinal: ?Negative for nausea, loss of appetite, emesis, diarrhea, constipation, and abdominal pain Genito-Urinary: ?Negative for urinary hesitancy, urinary frequency, straining, pink or red urine, pain with urination, nocturia, groin pain, frothy urine, flank pain, and decreased urine Musculoskeletal: ?Negative for joint swelling, and joint pain Neurologic: ?Negative for weakness, tremor, parathesias, and numbness Skin: ?Negative for rash, photosensitivity, and malar rash Hematology: ?Negative for easy bruising, and easy bleeding Endocrinology: ?Negative for hypoglycemic events, and heat or cold intolerance Other: ?Negative for morning headache, excessive snoring, and daytime somnolence ? PHYSICAL EXAMINATION: General: The patient is 63 year old male, well nourished, well hydrated in no acute distress. The patient is oriented to time, place, and person. VITALS: Blood pressure 126/60, pulse 67, temperature 36.2 ?C (97.2 ?F), height 177.8 cm (5' 10), weight 111.6 kg (246 lb), SpO2 100 %. Body mass index is 35.3 kg/m?. Head ? Normocephalic. EOM intact with sclera clear and no icterus noted. Mouth with mucus membranes moist. Neck - supple with no jugular venous distention noted. Trachea is midline. Lungs ? clear to auscultation. Normal breath sounds. No rales/rhonchi/wheezing noted. No labored breathing noted, such as retractions. Heart ? normal S1 and S2 auscultated. No rubs/clicks/murmurs noted. Regular rate. Abdomen ? soft and benign. Normal bowel sounds Difficult to determine if any masses or organomegaly due to body habitus. Extremities ? no calf tenderness noted. No pitting edema noted. Skin ? normal skin integrity. Neurological ? gait normal, no focal deficits noted. Psych ? calm and appropriate ? ? IMPRESSION: abnormal CT scan of colon, possible ischemic colon ? PLAN: I have discussed the above with the patient. I have offered evaluation with colonoscopy, possible biopsies. I have explained the procedure to the patient. I have counseled the patient as to the risks of the procedure, including but not limited to: infection, bleeding, perforation of the GI tract (there is risk given recent hospitalization), injury to any intraabdominal organs such as the liver/spleen, inability to complete the procedure, complications of anesthesia, etc. ? the patient understands. The patient wishes to proceed. Plan Golytely colon cleansing preparation. I have stressed to patient to drink fluids during his colon cleansing preparation to prevent dehydration. I have answered all questions to the patient?s satisfaction and the patient has no further questions.
[2019-05-27 10:42] VITALS: BP 140/55; PULSE 67; RESP 16; TEMP 36.6; O2SAT 100; BMI 36.6
[2019-05-27] MEDS: Lactated Ringers 1,000 ML 75 ML IV (10:51)
[2019-05-27 11:01] LABS: Bedside Glucose 217 mg/dL (70-110)
--- NOTE | 2019-05-27 12:00 | COLBX_PTH ---
PATIENT: ROMEL MCKEON LOC: EN U#:[id number] AGE/SX: 63/M ROOM: RE05/27/[address]: Dr. Celeste Sigala MD : 1955 BED: DIS: 05/27/2019 SPEC #: [id number] RECD: 05/27/19 14:01 STATUS: SRAVANI SARI #: [id number] DANY: 05/27/19 12:[address]: Celeste Sigala DEPT: SURGICAL PATHOLOGY RECD BY: Raleigh Michelle ENTERED: 05/27/19 14:27 SP TYPE: COLON BX JOE DR: Dr. John Ramirez MD Tissues: A - COLON BIOPSY B - Transverse colon C - Left colon D - Sigmoid colon biopsy E - Rectum, NOS Procedures: Surgery Specimen Level IV HEADER OPERATION: Colonoscopy (MAC) PRE-OP DIAGNOSIS: Mesenteric ischemia TISSUE SUBMITTED: A. Right colon biopsies, B. Transverse colon biopsies, C. Left colon biopsies, D. Sigmoid colon biopsies, E. Rectum biopsies MICROSCOPIC DIAGNOSIS A. Right colon, biopsy: No pathologic change. B. Transverse colon, biopsy: No significant pathologic change. C. Left colon, biopsy: No pathologic change. D. Sigmoid colon, biopsy: No pathologic change. E. Rectum, biopsy: No pathologic change. AM:jeffrey 05/28/19 COMMENT B. Eosinophils are mildly increased in the mucosa. The significance of this is unclear. MICROSCOPIC DESCRIPTION Slides are reviewed. GROSS DESCRIPTION A. Received is one container labeled with the patient name and designated right colon biopsy. The specimen consists of three irregular fragments of light vergara soft tissue that in aggregate measure 0.6 x 0.5 x 0.2 cm. The specimen is totally submitted in one cassette. B. Received is one container labeled with the patient name and designated transverse colon biopsy. The specimen consists of multiple irregular fragments of light vergara soft tissue that in aggregate measure 0.6 x 0.5 x 0.2 cm. The specimen is totally submitted in one cassette. C. Received is one container labeled with the patient name and designated left colon biopsy. The specimen consists of multiple irregular fragments of light vergara soft tissue that in aggregate measure 1 x 0.3 x 0.1 cm. The specimen is totally submitted in one cassette. D. Received is one container labeled with the patient name and designated sigmoid colon biopsy. The specimen consists of multiple irregular fragments of light vergara soft tissue that in aggregate measure 0.7 x 0.5 x 0.1 cm. The specimen is totally submitted in one cassette. E. Received is one container labeled with the patient name and designated rectal biopsy. The specimen consists of multiple irregular fragments of light vergara soft tissue that in aggregate measure 1 x 0.2 x 0.1 cm. The specimen is totally submitted in one cassette. / AM:sp 05/27/19 TC: 5 CPT: 78728 x5
[2019-05-27 12:10] VITALS: BP 120/58; BP 140/55; PULSE 63; RESP 16; TEMP 36.6; O2SAT 99
[2019-05-27 12:15] VITALS: BP 132/65; BP 140/55; PULSE 64; RESP 16; O2SAT 98
--- NOTE | 2019-05-27 12:15 | OP.COLON_ITS ---
Patient Name: Carlos Fischer Procedure Date: 05/27/2019 11:05 AM Date of : 1955 Age: 63 Procedure: Colonoscopy Indications: Abnormal CT of the GI tract Providers: Celeste Sigala MD Referring MD: Celeste Sigala MD Medicines: See the Anesthesia note for documentation of the administered medications Patient Profile: Refer to note in patient chart for documentation of history and physical. Last Colonoscopy: more than 10 years ago. Complications: No immediate complications. Procedure: Pre-Anesthesia Assessment: - see anesthesia note After I obtained informed consent, the scope was passed under direct vision. Throughout the procedure, the patient's blood pressure, pulse, and oxygen saturations were monitored continuously. The Colonoscope was introduced through the anus and advanced to the cecum, identified by appendiceal orifice and ileocecal valve. The colonoscopy was performed without difficulty. The patient tolerated the procedure well. The quality of the bowel preparation was inadequate. Scope In: 11:51:04 AM Scope Withdrawal Time 0 hours 7 minutes 18 seconds Scope Out: 12:04:52 PM Total Procedure Duration Time 0 hours 13 minutes 48 seconds Findings: The perianal and digital rectal examinations were normal. Non-bleeding internal hemorrhoids were found. The colon (entire examined portion) appeared normal. Biopsies were taken with a cold forceps for histology - of the right colon/transverse colon/left colon/sigmoid colon/rectum - this was done for CT scan findings of possible mesenteric ischemia. Verification of patient identification for the specimen was done by the nurse. Estimated blood loss was minimal. Impression: - Preparation of the colon was inadequate. - Non-bleeding internal hemorrhoids. - No specimens collected. Recommendation: - Repeat colonoscopy within one year, due to poor colon cleansing preparation or if patient's history of permits - consider cologard testing for surveillance. - Return to primary care physician PRN. - Continue present medications. Procedure Code(s): --- Professional --- 49623, Colonoscopy, flexible; diagnostic, including collection of specimen(s) by brushing or washing, when performed (separate procedure) Diagnosis Code(s): --- Professional --- K64.8, Other hemorrhoids R93.3, Abnormal findings on diagnostic imaging of other parts of digestive tract CPT copyright 2017 [employer]. All rights reserved. The codes documented in this report are preliminary and upon public services assistant review may be revised to meet current compliance requirements. MD Celeste Ricci MD 05/27/2019 12:15:02 PM This report has been signed electronically. Number of Addenda: 0 Note Initiated On: 05/27/2019 11:05 AM
[2019-05-27 12:20] VITALS: BP 140/55; BP 148/68; PULSE 65; RESP 16; O2SAT 99
[2019-05-27 12:25] VITALS: BP 140/55; BP 148/68; PULSE 66; RESP 16; TEMP 36.6; O2SAT 99
[2019-05-27 13:00] VITALS: BP 140/55
== END 2019-05-27 13:07 | disposition home or self-care (01) ==
LOC: EN 10:18 → AC 10:20
PROVIDERS: Family Provider Family Medicine; PCP Family Medicine; Referring Provider Surgery; Visit Provider Surgery
PROC: 0DJD8ZZ Inspection of Lower Intestinal Tract, Via Natural or Artificial Opening Endoscopic (ICD-10-PCS; CPT 45378; principal; 2019-05-27 11:55)
DX: R94.8 Abnormal results of function studies of other organs and systems (principal); I13.0 Hypertensive heart and chronic kidney disease with heart failure and stage 1 through stage 4 chronic kidney disease, or unspecified chronic kidney disease; R93.3 Abnormal findings on diagnostic imaging of other parts of digestive tract; K64.8 Other hemorrhoids; I50.33 Acute on chronic diastolic (congestive) heart failure; I25.10 Atherosclerotic heart disease of native coronary artery without angina pectoris; K21.0 Gastro-esophageal reflux disease with esophagitis; N18.9 Chronic kidney disease, unspecified; E11.22 Type 2 diabetes mellitus with diabetic chronic kidney disease; E66.9 Obesity, unspecified; E78.2 Mixed hyperlipidemia; G40.409 Other generalized epilepsy and epileptic syndromes, not intractable, without status epilepticus; Z79.899 Other long term (current) drug therapy; Z79.82 Long term (current) use of aspirin; Z79.4 Long term (current) use of insulin; Z68.36 Body mass index [BMI] 36.0-36.9, adult; Z71.3 Dietary counseling and surveillance; Z87.891 Personal history of nicotine dependence
CPT/HCPCS: 45380; 82962; 88305; J7120

== ENCOUNTER → 2020-04-02 21:08 | Outpatient (CLI) | payer OTHER, SELFPAY | PROVIDERS: PCP Family Medicine; Referring Provider Psychiatry & Neurology Sleep Medicine; Visit Provider Psychiatry & Neurology Sleep Medicine | DX: G47.31 Primary central sleep apnea (principal) | CPT/HCPCS: 95811 ==